=== PATIENT | female | born 2005 | race Two or more races ===

== ENCOUNTER 2025-01-14 09:52 | Emergency (ER) | payer BC, SELFPAY ==
[2025-01-14 10:05] VITALS: BP 114/57; PULSE 78; RESP 20; TEMP 36.3; O2SAT 100; BMI 26.4
--- NOTE | 2025-01-14 10:17 | PD.EDRME ---
Rapid Medical Screening Exam E Arrival date/time: 01/14/25 09:52 This is a 19-year-old female that comes in with complaints of nausea, vomiting, diarrhea that started 2 days ago. Patient also complains of lower abdominal pain. Patient stateS recently when she was wiping after going to the bathroom she noticed blood. Patient hyperventilating in triage. Patient states she is having a panic attack. Patient reports that she smokes medical marijuana since the seventh grade. Patient states she has not smoked since this started. Patient denies past medical history. I have greeted and performed a focused initial assessment of this patient. Initial appropriate labs ordered at this time. A comprehensive ED assessment and evaluation of the patient and analysis of all test and completion of medical decision making process will be conducted by additional ED provider. Chief Complaint: Abdominal Pain Time Seen by Provider: 01/14/25 09:56 Vital signs: Vital Signs Temperature 97.4 F 01/14/25 10:05 Pulse Rate 78 01/14/25 10:05 Respiratory Rate 20 01/14/25 10:05 Blood Pressure 114/57 L 01/14/25 10:05 Pulse Oximetry (%) 100 01/14/25 10:05 Oxygen Delivery Method Room Air 01/14/25 10:05
[2025-01-14] MEDS: ONDANSETRON ODT 4 MG TABRAP PO (10:24)
--- NOTE | 2025-01-14 11:00 | EDNOTE_ITS ---
<Statement entered by Chayito Villeda MD - 01/14/25 14:43> As co-signing physician, I was present and available for consult prn. I concur with the plan and care as documented by the midlevel provider. ED General RME/HPI General Chief complaint: Abdominal Pain Stated complaint: NAUSEA,DIZZY,UNABLE TO EAT/DRINK,ABD PAIN X 2 DAY Time Seen by Provider: 01/14/25 09:56 Arrival date/time: 01/14/25 09:52 CC: Nausea vomiting diarrhea abdominal pain bloody diarrhea HPI ongoing 2 days ago denies any fever no other family members with similar illness. Awake alert oriented no other complaints. No antibiotics in the last 3 months. RME / HPI RME / HPI narrative: 01/14/25 09:52 This is a 19-year-old female that comes in with complaints of nausea, vomiting, diarrhea that started 2 days ago. Patient also complains of lower abdominal pain. Patient stateS recently when she was wiping after going to the bathroom she noticed blood. Patient hyperventilating in triage. Patient states she is having a panic attack. Patient reports that she smokes medical marijuana since the seventh grade. Patient states she has not smoked since this started. Patient denies past medical history. I have greeted and performed a focused initial assessment of this patient. Initial appropriate labs ordered at this time. A comprehensive ED assessment and evaluation of the patient and analysis of all test and completion of medical decision making process will be conducted by additional ED provider. Related Data Previous Rx's ?Medication ?Instructions ?Recorded ondansetron 4 mg disintegrating 4 mg PO Q8H #10 tabs 0 01/14/25 tablet Allergies Allergy/AdvReac Type Severity Reaction Status Date / Time No Known Allergies Allergy Verified 01/14/25 09:55 Review of Systems Review of Systems Narrative Review of Systems: GEN: No fever, no chills, no weight loss EYES: No discharge, no visual changes, no pain HEENT: No ear pain, no congestion, no sore throat PULM: No shortness of breath, no cough, no congestion CV: No chest pain, no dyspnea on exertion, no palpitations GI: + nausea, + vomiting, +diarrhea, + pain, no constipation : No frequency, no urgency, no dysuria MUSC/SKEL: No joint pain, no back pain SKIN: No rash PSYCH: No hallucinations, no depression HEME/LYMPH: No easy bleeding or bruising tendencies NEURO: No weakness, no headache GEN: No fever, no chills, no weight loss Past Medical History Past Medical History CARDIAC: Negative Congestive Heart Failure RESPIRATORY: Negative Chronic Obstructive Pulmonary Disease (COPD) GASTROINTESTINAL: Positive Gastrointestinal Disorders GENITOURINARY: Negative Renal Disease ENDOCRINE: Negative Diabetes Mellitus Type 1 or Diabetes Mellitus Type 2 Social History SMOKING STATUS: Never smoker ED Exam Narrative Physical exam: [General: Obese not in cot no acute distress Head normocephalic HEENT: Within acceptable limits Neck is supple nontender Chest equal chest rise nontender to palpation Respiratory: Clear to auscultation no wheezes crackles or rubs CV: Rate rhythm is regular no murmurs rubs or clicks Abdomen is soft, diffusely tender, no masses positive bowel sounds all 4 quadrants Back: No CVA tenderness no spinous process tenderness from cervical spine thoracic and lumbar spine Skin: Intact no petechiae rash induration ulceration or crepitus Extremities: Moving all extremity against resistance cap refill less than 2 seconds neurosensory intact Neuro: Awake alert oriented x3 Glascow coma 15 no focal deficits] Course Quality Measures none Orders Category Date Time Status Saline [Insert IV] NOW Care 01/14/25 10:[address] abdomen pelvis wo con Stat Exams 01/14/25 12:05 Completed CBC Stat Lab 01/14/25 10:47 Completed Comprehensive Metabolic Panel Stat Lab 01/14/25 10:47 Completed Drug Screen,Urine Stat Lab 01/14/25 10:54 Completed HCG Qualitative,Urine Stat Lab 01/14/25 10:54 Completed Lipase Stat Lab 01/14/25 10:47 Completed PT [Prothrombin Time with INR] Stat Lab 01/14/25 10:47 Completed Urinalysis, C/S if Indicated Stat Lab 01/14/25 10:54 Completed c diff [Clostridium Difficile PCR] Stat Lab 01/14/25 12:08 Completed Ondansetron Inj [Zofran Inj] Med 01/14/25 10:58 Discontinued 4 mg IV X1 ONE Ondansetron Odt [Zofran Odt] Med 01/14/25 10:16 Discontinued 4 mg PO X1 ONE Prochlorperazine Inj [Compazine Inj] Med 01/14/25 12:52 Discontinued 10 mg IV X1 ONE Sodium Chloride 0.9% 1000 ml [Ns] 1,000 ml Med 01/14/25 10:58 Discontinued IV 999 mls/hr Vital Signs Vital signs: Vital Signs Temperature 97.4 F 01/14/25 10:05 Pulse Rate 78 01/14/25 10:05 Respiratory Rate 20 01/14/25 10:05 Blood Pressure 114/57 L 01/14/25 10:05 Pulse Oximetry (%) 100 01/14/25 10:05 Oxygen Delivery Method Room Air 01/14/25 10:05 Discharge Plan Plan Patient Disposition: HOME (Self Care) Patient condition on transfer: Stable Prescriptions/Referrals Prescriptions/Med Rec: New ondansetron 4 mg tablet,disintegrating 4 mg PO Q8H Qty: 10 0RF Referrals: Andrew Sifuentes PA-C [Primary Care Provider] - In 1 week Problem List Clinical Impression: Nausea vomiting and diarrhea Patient/Caregiver Discharge Instructions Education Materials: Self-Care for Vomiting and Diarrhea, ED Diarrhea, Unknown Cause, ED Vomiting and Diarrhea ... Additional Instructions: Take the medication as prescribed for nausea. Rest drink plenty of fluids. There is a worsening of symptoms in spite of the medications return the emergency room medially for further evaluation. Print Language: Malaysian Stand Alone Forms: [employer] Award Info., Patient Portal Info Letter, Work/School Release CRYSTAL/ELISEO Supervising Physician MANOJ Supervising Physician: Chavo Penny ENP MDM Patient Acuity Low Acuity (complete MDM as needed) Clinical Information Provided by: patient Medical Records reviewed [facility] Chronic Illness/Social Conditions which may negatively complicate care or outcome(s)-explain: None or not applicable EKG EKG not done Labs Lab(s) Interpretation(s): CBC shows no acute leukocytosis anemia thrombocytopenia coags within acceptable limits CMP shows no significant electrolyte imbalances renal impairment transaminitis or T. bili elevation Urine is negative with exception of 4+ ketones UDS is positive for marijuana Abdominal CT is negative C. difficile is negative Medication Administration(s) Medication Administration History Discontinued Medications Sodium Chloride (Ns) 1,000 mls @ 999 mls/hr IV .Q1H1M ONE Stop: 01/14/25 11:58 Last Infusion: 01/14/25 12:15 Dose: Infused Documented By: Admin: 01/14/25 11:11 Dose: 999 mls/hr Documented By: MAXWELL Ondansetron HCl (Ondansetron Odt 4 Mg Tabrap) 4 mg PO X1 ONE; Protocol Stop: 01/14/25 10:17 Last Admin: 01/14/25 10:24 Dose: 4 mg Documented By: MAXWELL Ondansetron HCl (Ondansetron Inj 2 Mg/Ml Inj 2 Ml) 4 mg IV X1 ONE; Protocol Stop: 01/14/25 10:59 Last Admin: 01/14/25 11:13 Dose: 4 mg Documented By: MAXWELL Prochlorperazine Edisylate (Prochlorperazine Inj 5 Mg/Ml Vial 2 Ml) 10 mg IV X1 ONE; Protocol Stop: 01/14/25 12:53 Last Admin: 01/14/25 13:06 Dose: 10 mg Documented By: MAXWELL Diagnosis Differential Diagnosis ED Complaint MDM: C. difficile ileus diverticulitis
[2025-01-14 11:02] LABS: Collection Type, Urine Voided
[2025-01-14 11:07] LABS: Basophils % (Auto) 0 % (0-2.5); Eosinophils % (Auto) 0 % (0-10); Hematocrit 41.7 % (36.0-46.0); Hemoglobin 14.7 g/dL (12.0-16.0); Immature Granulocytes % (Auto) 0 % (0-0); Immature Granulocytes Auto 0.02 Thou/mm3 (0.00-0.00); Lymphocytes # (Auto) 1.7 Thou/mm3 (1.0-4.8); Lymphocytes % (Auto) 18 % (10-50); Mean Corpuscular HGB Conc 35.3 g/dl (31.0-37.0); Mean Corpuscular Hemoglobin 29.1 pg (25.0-35.0); Mean Corpuscular Volume 82 fL (80-100); Monocytes # (Auto) 0.3 Thou/mm3 (0.0-0.8); Monocytes % (Auto) 3 % (0-12); Neutrophils # (Auto) 7.3 Thou/mm3 (1.8-7.7); Neutrophils % (Auto) 79 % (37-80); Nucleated Red Blood Cell % 0 /100 WBC (0); Platelet Count 284 Thou/mm3 (140-440); RDW Standard Deviation 36.5 fL (36.4-46.3); Red Blood Count 5.06 Miln/mm3 (4.00-5.20); White Blood Count 9.3 Thou/mm3 (4.5-11.0)
[2025-01-14 11:10] LABS: HCG Qualitative,Urine Negative
[2025-01-14] MEDS: SODIUM CHLORIDE 0.9% 1000 ML 1,000 ML 999 ML IV (11:11)
[2025-01-14] MEDS: ONDANSETRON INJ 2 MG/ML INJ 2 ML 4 MG IV (11:13)
[2025-01-14 11:16] LABS: Bacteria,Urine Rare; Bilirubin,Urine Negative (Negative); Blood,Urine 2+ (Negative); Clarity,Urine Clear (Clear/Hazy); Color,Urine Yellow (Lt Yel-Yel); Culture Indicated,Urine Not Indicated; Glucose, Urine Negative (Negative); Ketones,Urine 4+ (Negative); Leukocyte Esterase,Urine Negative (Negative); Nitrite,Urine Negative (Negative); PH,Urine 7.5 (5.0-7.0); Protein,Urine Trace (Neg - Trace); RBC,Urine 3 /hpf (0-3); Specific Gravity,Urine 1.031 (1.001-1.035); Squamous Epithelial Cell,Urine 4 /hpf (0-5); Urobilinogen,Urine Negative mg/dL (0.0-1.0); WBC,Urine < 1 /hpf (0-5)
[2025-01-14 11:20] LABS: INR 1.1 (0.9-1.3); Prothrombin Time 11.5 Seconds (9.0-12.2)
[2025-01-14 11:25] LABS: Alanine Aminotransferase 66 U/L (10-49); Albumin, Serum 4.9 gm/dL (3.5-5.0); Albumin/Globulin Ratio 1.9 (1.2-2.2); Alkaline Phosphatase 71 U/L (46-116); Anion Gap 13 (7-16); Aspartate Amino Transferase 34 U/L (0-34); BUN/Creatinine Ratio 12 Ratio (12-20); Bilirubin,Total 1.2 mg/dL (0.3-1.2); Blood Urea Nitrogen 11 mg/dL (9-23); Calcium 9.9 mg/dL (8.3-10.6); Calcium (Corrected) 9.9 mg/dL (8.5-10.1); Carbon Dioxide 21.1 mMol/L (20.0-31.0); Chloride 108 mMol/L (98-107); Creatinine (Component) 0.9 mg/dL (0.6-1.3); Estimated Creatinine Clearance 113.5 mL/min (>60); Globulin 2.6 gm/dL (2.3-3.5); Glucose 105 mg/dL (74-106); Lipase 22 U/L (12-53); Osmolality,Calculated 282 (275-295); Potassium 3.4 mMol/L (3.4-5.1); Sodium 142 mMol/L (136-145); Total Protein 7.5 gm/dL (5.7-8.2); eGFR > 60 See Note
[2025-01-14 11:34] LABS: Amphetamine/Methamp Scrn,U Negative (Negative); Barbiturate Screen,Urine Negative (Negative); Benzodiazepines Screen,Urine Negative (Negative); Benzoylecgonine Screen, Ur Negative (Negative); Fentanyl Screen,Urine Negative (Negative); Opiate Screen,Urine Negative (Negative); THC Screen,Urine Positive (Negative)
--- NOTE | 2025-01-14 12:05 | XR_ITS ---
Examination: CT abdomen and pelvis without contrast. Coronal 3-D reconstructions. Sagittal 2-D reconstructions. Date and time of exam:January 14, 2025 1218 hours INDICATIONS: Mid abdominal pain today CTDI: vol (mGy): 8.73 DLP: (mGycm): 435 Technique: Axial images of the abdomen have been obtained, 3 mm slice thickness Intravenous contrast material has not been administered. Low dose protocols were performed. One or more of the following dose reduction techniques were used; automated exposure control, adjustment of the mA and/or KV according to patient size, use of iterative reconstruction technique. Findings: No focal liver or splenic lesions No gallstones No pancreatic or adrenal mass No renal or ureteral calculi, no hydronephrosis Normal appendix No bowel obstruction No uterine mass 26 mm possible right adnexal cyst Urinary bladder is intact IMPRESSION: No renal or ureteral calculi, no hydronephrosis Normal appendix Recommend pelvic sonography to confirm 26 mm right adnexal cyst
[2025-01-14 12:12] VITALS: BP 120/69; PULSE 59; TEMP 36.8; O2SAT 98
[2025-01-14] MEDS: PROCHLORPERAZINE INJ 5 MG/ML VIAL 2 ML 10 MG IV (13:06)
[2025-01-14 13:56] LABS: Clostridium Difficile PCR Negative (Negative)
[2025-01-14 14:11] VITALS: BP 128/77; PULSE 88; RESP 16; TEMP 36.7; O2SAT 100
== END 2025-01-14 14:12 | disposition home or self-care (01) ==
PROVIDERS: Nurse Practitioner Family; Registered Nurse General Practice; Emergency Provider Emergency Medicine; PCP Physician Assistant
DX: R11.2 Nausea with vomiting, unspecified (principal); R19.7 Diarrhea, unspecified; R10.30 Lower abdominal pain, unspecified
CPT/HCPCS: 36415; 74176; 80053; 80307; 81001; 81025; 83690; 85025; 85610; 87493; 96361; 96374; 99284; J0780; J2405; J7030; Q0162

== ENCOUNTER 2025-01-19 11:15 | Emergency (ER) | payer BC, SELFPAY ==
[2025-01-19 11:31] VITALS: BP 131/95; PULSE 71; RESP 18; TEMP 36.4; O2SAT 100; BMI 25.4
--- NOTE | 2025-01-19 11:40 | XR_ITS ---
Examination: Pelvic ultrasound, transabdominal, complete Technique: Transabdominal ultrasound of the pelvis performed using grayscale imaging Date and time of exam: January 19, 2025 1247 hours INDICATIONS: Vaginal bleeding and pelvic pain beginning 3 days ago FINDINGS: Uterus 7.1 cm endometrial stripe 0.5 cm No uterine mass or intrauterine gestation Right ovary 3.1 cm arterial flow 29 mm cyst Left ovary 3.4 cm arterial flow IMPRESSION: Right ovarian simple cyst 2.3 x 1.9 x 2.9 cm
--- NOTE | 2025-01-19 11:40 | XR_ITS ---
Examination: Abdomen sonogram, Limited Date and time of exam: January 19, 2025 1227 hours INDICATIONS: Mid abdominal pain umbilical pain beginning one week ago Technique: Real-time armas scale transabdominal sonographic images of the upper abdomen obtained. Findings: Gallbladder sludge No gallstones Normal gallbladder wall Normal common bile duct 0.3 cm Pancreatic head 1.3 cm Liver 14.2 cm no focal liver lesions Normal hepatopedal portal venous flow Patent IVC IMPRESSION: Gallbladder sludge, negative for cholelithiasis, negative for cholecystitis
[2025-01-19 12:03] LABS: Basophils % (Auto) 0 % (0-2.5); Eosinophils % (Auto) 0 % (0-10); Hematocrit 39.7 % (36.0-46.0); Hemoglobin 14.3 g/dL (12.0-16.0); Immature Granulocytes % (Auto) 0 % (0-0); Immature Granulocytes Auto 0.02 Thou/mm3 (0.00-0.00); Lymphocytes # (Auto) 2.4 Thou/mm3 (1.0-4.8); Lymphocytes % (Auto) 27 % (10-50); Mean Corpuscular Hemoglobin 29.2 pg (25.0-35.0); Mean Corpuscular Volume 81 fL (80-100); Monocytes # (Auto) 0.5 Thou/mm3 (0.0-0.8); Monocytes % (Auto) 6 % (0-12); Neutrophils # (Auto) 5.9 Thou/mm3 (1.8-7.7); Neutrophils % (Auto) 67 % (37-80); Nucleated Red Blood Cell % 0 /100 WBC (0); Platelet Count 277 Thou/mm3 (140-440); RDW Standard Deviation 34.9 fL (36.4-46.3); White Blood Count 8.8 Thou/mm3 (4.5-11.0)
[2025-01-19 12:19] LABS: Collection Type, Urine Clean Catch; Squamous Epithelial Cell,Urine 0 /hpf (0-5)
--- NOTE | 2025-01-19 12:22 | PD.EDRME ---
Rapid Medical Screening Exam RME Arrival date/time: 01/19/25 11:15 19-year-old female with no known medical history presents to the emergency room with a chief complaint of right-sided pelvic pain, vaginal bleeding, right upper quadrant abdominal tenderness, and nausea x 3 days I have greeted and performed a focused initial assessment of this patient. A comprehensive ED assessment and evaluation of the patient, analysis of all test results, and completion of the medical decision making process will be conducted by additional ED providers. Chief Complaint: Vaginal Bleeding Time Seen by Provider: 01/19/25 11:19 Vital signs: Vital Signs Temperature 97.6 F 01/19/25 11:31 Pulse Rate 71 01/19/25 11:31 Respiratory Rate 18 01/19/25 11:31 Blood Pressure 131/95 H 01/19/25 11:31 Pulse Oximetry (%) 100 01/19/25 11:31 Oxygen Delivery Method Room Air 01/19/25 11:31 Vital signs reviewed by provider: Yes
[2025-01-19 12:25] LABS: Bilirubin,Urine Negative (Negative); Blood,Urine 3+ (Negative); Clarity,Urine Clear (Clear/Hazy); Color,Urine Lt-Yellow (Lt Yel-Yel); Glucose, Urine Negative (Negative); HCG Qualitative,Urine Negative; Ketones,Urine 3+ (Negative); Leukocyte Esterase,Urine Negative (Negative); Nitrite,Urine Negative (Negative); Protein,Urine Trace (Neg - Trace); RBC,Urine 43 /hpf (0-3); Specific Gravity,Urine 1.024 (1.001-1.035); WBC,Urine 1 /hpf (0-5)
[2025-01-19 12:26] LABS: Alanine Aminotransferase 22 U/L (10-49); Albumin, Serum 4.9 gm/dL (3.5-5.0); Albumin/Globulin Ratio 1.8 (1.2-2.2); Alkaline Phosphatase 68 U/L (46-116); Anion Gap 10 (7-16); Aspartate Amino Transferase 16 U/L (0-34); BUN/Creatinine Ratio 9 Ratio (12-20); Blood Urea Nitrogen 7 mg/dL (9-23); Calcium 9.6 mg/dL (8.3-10.6); Calcium (Corrected) 9.6 mg/dL (8.5-10.1); Carbon Dioxide 26.2 mMol/L (20.0-31.0); Chloride 106 mMol/L (98-107); Creatinine (Component) 0.8 mg/dL (0.6-1.3); Estimated Creatinine Clearance 117.2 mL/min (>60); Globulin 2.8 gm/dL (2.3-3.5); Glucose 90 mg/dL (74-106); Lipase 26 U/L (12-53); Osmolality,Calculated 281 (275-295); Sodium 142 mMol/L (136-145); Total Protein 7.7 gm/dL (5.7-8.2); eGFR > 60 See Note
[2025-01-19 13:54] VITALS: BP 129/72; PULSE 60; RESP 18; TEMP 36.8; O2SAT 97
--- NOTE | 2025-01-19 15:18 | EDNOTE_ITS ---
ED Abdominal Pain RME/HPI General Chief Complaint: Vaginal Bleeding Stated complaint: VAGINAL BLEEDING X 3 DAYS WITH ABD PAIN; OB SENT Time seen by provider: 01/19/25 11:19 Arrival date/time: 01/19/25 11:15 RME / HPI RME / HPI narrative: 19-year-old female with no known medical history presents to the emergency room with a chief complaint of right-sided pelvic pain, vaginal bleeding, right upper quadrant abdominal tenderness, and nausea x 3 days. Patient denies any fever. Denies any vomiting denies any other complaints. She is on her third day of menstruation. Related Data Previous Rx's ?Medication ?Instructions ?Recorded ondansetron 4 mg disintegrating 4 mg PO Q8H #10 tabs 0 01/14/25 tablet dicyclomine 20 mg tablet 20 mg PO TID PRN abdominal p ain 01/19/25 #30 tabs ibuprofen 800 mg tablet 800 mg PO TID PRN pain #30 t abs 01/19/25 Allergies Allergy/AdvReac Type Severity Reaction Status Date / Time No Known Allergies Allergy Verified 01/19/25 11:18 Review of Systems Review of Systems Narrative Review of Systems: Review of system reviewed and within normal limits except mentioned in HPI ED Exam Narrative Physical exam: VITAL SIGNS: Reviewed. GENERAL APPEARANCE: Alert and interactive, follows commands, no acute distress, HEAD AND FACE: Non-traumatic. ENT: PERRL, pink conjunctivitis, eyelid no trauma, Mucous membrane moist. NECK: Supple, nontender, no nuchal rigidity. CHEST: No tenderness, no crepitus, no paradoxical movement, no retractions. LUNGS: Clear, well ventilated, symmetric, no rales, no wheezing, no ronchi, no stridor, good breath sounds bilaterally. HEART: Regular rate, regular rhythm, no murmur, no gallops. ABDOMEN: Soft, positive bowel sounds, nondistended, no guarding, epigastric ten derness, no rebound, no masses, RECTAL: Deferred. GENITAL: Deferred. NEUROLOGICAL: Gross motor function intact sensory function intact, Appropriate for age. MUSCULOSKELETAL: low back nontender, full range of motion. EXTREMITIES: Nontender, full range of motion. SKIN: Color pink, dry, no rash, no lacerations, no abrasions, no contusions. LYMPHATICS: Deferred. Course Quality Measures none Orders Category Date Time Status US gall bladder Stat Exams 01/19/25 11:40 Completed US pelvic complete Stat Exams 01/19/25 11:40 Completed CBC Stat Lab 01/19/25 11:57 Completed CMP [Comprehensive Metabolic Panel] Stat Lab 01/19/25 11:57 Completed HCG Qualitative,Urine Stat Lab 01/19/25 12:12 Completed Lipase Stat Lab 01/19/25 11:57 Completed UA [Urinalysis] Stat Lab 01/19/25 12:12 Completed Urine Culture Stat Lab 01/19/25 11:40 Received Vital Signs Vital signs: Vital Signs Temperature 97.6 F 01/19/25 11:31 Pulse Rate 71 01/19/25 11:31 Respiratory Rate 18 01/19/25 11:31 Blood Pressure 131/95 H 01/19/25 11:31 Pulse Oximetry (%) 100 01/19/25 11:31 Oxygen Delivery Method Room Air 01/19/25 11:31 Abdominal Pain MDM [facility] Narrative [facility] Narrative:: 19-year-old female with no known medical history presents to the emergency room with a chief complaint of right-sided pelvic pain, vaginal bleeding, right upper quadrant abdominal tenderness, and nausea x 3 days. Patient denies any fever. Denies any vomiting denies any other complaints. She is on her third day of menstruation. Patient workup today all came back abnormal except for ultrasound that showed gallbladder sludge otherwise unremarkable. Ultrasound of pelvic showed simple ovarian cysts on the right Results discussed with the patient. Patient appears nontoxic and hemodynamically stable. Patient discharged home and instructed to follow-up with primary care provider in 24 to 48 hours. Instructed to return to the emergency department immediately if worsening of symptoms Patient data External records reviewed:: None Clinical information provided by:: patient Social determinants that could affect healthcare access:: none Patient has the following chronic illnesses:: None How is presenting disease/condition affected by chronic disease/condition?: no chronic disease Evaluation data The following diagnostics were reviewed and interpreted by me:: lab results and radiology exam(s) Lab and/or radiology exams considered but not ordered:: None Interpretation Summary: See results in MDM Medications / Prescriptions Medications or Prescriptions considered but not ordered:: None Medication administrations:: None Consultations Consultation(s) initiated? (list below): No Diagnosis Differential diagnosis abdominal pain: abdominal pain and other (Ovarian cyst, gallbladder sludge) Most likely diagnosis given after review of the tests above:: Ovarian cyst, gallbladder sludge Admission Indicated Admission indicated?: not indicated Admission Request Was there a request for admission?: No Disposition Plan Disposition Plan: Discharge Discharge Attestation Discharge Attestation: The patient was given an opportunity to ask questions and understood the discharge instructions. Discharge instructions specifically effects, indications for sooner follow up or return to the emergency department, and the expected course of current diagnosis. Patient condition: Stable Discharge Plan Plan Patient Disposition: HOME (Self Care) Discharge Disposition comment: Stable Prescriptions/Referrals Prescriptions/Med Rec: New dicyclomine 20 mg tablet 20 mg PO TID PRN (Reason: abdominal pain) Qty: 30 0RF ibuprofen 800 mg tablet 800 mg PO TID PRN (Reason: pain) Qty: 30 0RF No Action ondansetron 4 mg tablet,disintegrating 4 mg PO Q8H Qty: 10 0RF Referrals: No Primary/Family,Physician [Primary Care Provider] - In 1 week Problem List Clinical Impression: Gallbladder sludge, Ovarian cyst Patient/Caregiver Discharge Instructions Discharge Activity: activity as tolerated Education Materials: Understanding Ovarian Cysts, ED Ovarian Cyst Additional Instructions: Thank you for the opportunity for serving you today. You are stable for discharged . You are advised to: Follow-up with your PCP in 1 to 2 days Please avoid eating fatty, greasy, fried foods Return to ED for worsening of symptoms Increase oral fluids Take medication as prescribed Print Language: Kyrgyz Stand Alone Forms: [employer] Award Info., Patient Portal Info Letter PA/ELISEO Supervising Physician CRYSTAL/ELISEO Supervising Physician: MD Jet
== END 2025-01-19 15:32 | disposition home or self-care (01) ==
PROVIDERS: Nurse Practitioner Family; Emergency Provider Emergency Medicine
DX: K82.8 Other specified diseases of gallbladder (principal); N83.291 Other ovarian cyst, right side
CPT/HCPCS: 36415; 76705; 76856; 80053; 81001; 81025; 83690; 85025; 87086; 99284

== ENCOUNTER 2025-01-20 15:48 | Inpatient (IN) | payer BC, SELFPAY ==
[2025-01-20 16:23] VITALS: BP 141/82; PULSE 79; RESP 20; TEMP 37.1; O2SAT 100
--- NOTE | 2025-01-20 16:30 | PD.EDRME ---
Rapid Medical Screening Exam E Arrival date/time: 01/20/25 15:48 This is a 19-year-old female with complaints of nausea, vomiting, diarrhea, patient states symptoms have been going on for the past 9 days. Patient states she is left 15 pounds since then. Patient was diagnosed with by gallbladder sludge. Patient was also having vaginal bleeding and recently had an ultrasound that showed that she had some ovarian cyst. Patient states she had just got her menstrual cycle and then started bleeding a couple days ago. Patient states she is not able to keep any food down. I have greeted and performed a focused initial assessment of this patient. Initial appropriate labs ordered at this time. A comprehensive ED assessment and evaluation of the patient and analysis of all test and completion of medical decision making process will be conducted by additional ED provider. Chief Complaint: Abdominal Pain Time Seen by Provider: 01/20/25 15:52 Vital signs: Vital Signs Temperature 98.8 F 01/20/25 16:23 Pulse Rate 79 01/20/25 16:23 Respiratory Rate 20 01/20/25 16:23 Blood Pressure 141/82 H 01/20/25 16:23 Pulse Oximetry (%) 100 01/20/25 16:23 Oxygen Delivery Method Room Air 01/20/25 16:23
[2025-01-20] MEDS: ONDANSETRON ODT 4 MG TABRAP PO (16:39)
[2025-01-20 17:12] LABS: Basophils % (Auto) 0 % (0-2.5); Eosinophils % (Auto) 0 % (0-10); Hematocrit 38.1 % (36.0-46.0); Immature Granulocytes % (Auto) 0 % (0-0); Immature Granulocytes Auto 0.03 Thou/mm3 (0.00-0.00); Lymphocytes % (Auto) 33 % (10-50); Mean Corpuscular HGB Conc 36.7 g/dl (31.0-37.0); Mean Corpuscular Hemoglobin 29.4 pg (25.0-35.0); Mean Corpuscular Volume 80 fL (80-100); Monocytes # (Auto) 0.5 Thou/mm3 (0.0-0.8); Monocytes % (Auto) 6 % (0-12); Neutrophils # (Auto) 5.4 Thou/mm3 (1.8-7.7); Neutrophils % (Auto) 60 % (37-80); Nucleated Red Blood Cell % 0 /100 WBC (0); Platelet Count 281 Thou/mm3 (140-440); Red Blood Count 4.76 Miln/mm3 (4.00-5.20)
[2025-01-20 17:27] LABS: Alanine Aminotransferase 16 U/L (10-49); Albumin, Serum 4.8 gm/dL (3.5-5.0); Albumin/Globulin Ratio 1.7 (1.2-2.2); Alkaline Phosphatase 66 U/L (46-116); Anion Gap 13 (7-16); Aspartate Amino Transferase 16 U/L (0-34); BUN/Creatinine Ratio 9 Ratio (12-20); Bilirubin,Total 1.3 mg/dL (0.3-1.2); Blood Urea Nitrogen 7 mg/dL (9-23); Calcium 9.4 mg/dL (8.3-10.6); Calcium (Corrected) 9.4 mg/dL (8.5-10.1); Carbon Dioxide 22.5 mMol/L (20.0-31.0); Chloride 106 mMol/L (98-107); Creatinine (Component) 0.8 mg/dL (0.6-1.3); Globulin 2.8 gm/dL (2.3-3.5); Glucose 82 mg/dL (74-106); Lipase 24 U/L (12-53); Osmolality,Calculated 278 (275-295); Potassium 3.6 mMol/L (3.4-5.1); Sodium 141 mMol/L (136-145); Total Protein 7.6 gm/dL (5.7-8.2); eGFR > 60 See Note
--- NOTE | 2025-01-20 19:51 | EDNOTE_ITS ---
ED Abdominal Pain RME/HPI General Chief Complaint: Abdominal Pain Stated complaint: ABD PAIN, N/V/D Time seen by provider: 01/20/25 15:52 Arrival date/time: 01/20/25 15:48 RME / HPI RME / HPI narrative: 01/20/25 15:48 This is a 19-year-old female with complaints of nausea, vomiting, diarrhea, patient states symptoms have been going on for the past 9 days. Patient states she is left 15 pounds since then. Patient was diagnosed with by gallbladder sludge. Patient was also having vaginal bleeding and recently had an ultrasound that showed that she had some ovarian cyst. Patient states she had just got her menstrual cycle and then started bleeding a couple days ago. Patient states she is not able to keep any food down. I have greeted and performed a focused initial assessment of this patient. Initial appropriate labs ordered at this time. A comprehensive ED assessment and evaluation of the patient and analysis of all test and completion of medical decision making process will be conducted by additional ED provider. DR. VILLEDA MAIN ED EVALUATION: 19 y/o female with Hx of gastritis presents to ED c/o intermittent epigastric abdominal pain, BL flank pain, diarrhea, vomiting, loss of appetite, and weight loss x 9 days. She describes the abdominal pain as someone tying her guts into knots , and worsening each time it returns. Patient reports losing 15 lb. since last Wednesday. Patient gags as soon as food enters her mouth, but has been drinking water. Patient was told yesterday to avoid sugar. Patient has seen her PCP and given Omeperazole with no relief. Patient was also seen here yesterday and told she had gallbladder sludge following an US and given medication that also does not help. She reports Zofran has helped with nausea, but still is not able to eat. Admits at-home test was negative and relies on Nexplanon as control. No other concerns or complaints expressed at this time. Related Data Home Medications ?Medication ?Instructions ?Recorded ?Confirmed omeprazole 20 mg capsule,delayed 20 mg PO BID 01/20/25 01/20/25 release sucralfate 1 gram tablet 1 g PO BID 01/20/25 01/20/25 Previous Rx's ?Medication ?Instructions ?Recorded ondansetron 4 mg disintegrating 4 mg PO Q8H #10 tabs 0 01/14/25 tablet Allergies Allergy/AdvReac Type Severity Reaction Status Date / Time No Known Allergies Allergy Verified 01/19/25 11:18 Review of Systems Review of Systems Systems Reviewed: All systems reviewed, normal except as documented Narrative Review of Systems: Gen: No fever, no chills, Positive weight loss EYES: No discharge, no visual changes, no pain HEENT: No ear pain, no congestion, no sore throat PULM: No shortness of breath, no cough, no congestion CV: No chest pain, no dyspnea on exertion, no palpitations GI: Positive nausea, no vomiting, positive diarrhea, positive pain, positive loss of appetite : No frequency, no urgency, no dysuria Musc/skel: No joint pain, Positive BL flank pain. Skin: No rash. Psyc: No hallucinations, no depression Heme/Lymph: No easy bleeding or bruising tendencies Neuro: No weakness, no headache Past Medical History Past Medical History GASTROINTESTINAL: Positive Gastrointestinal Disorders ED Exam Narrative Physical exam: GENERAL APPEARANCE: alert and oriented x 4, well-developed, well-nourished, no acute distress VITALS: All vitals were reviewed and the pulse ox is 96% on room air, which is n ormal according to my interpretation. HEENT: Normocephalic, atraumatic; pupils equal, round, reactive to light; EOMI; mucous membranes pink, moist; oropharynx clear NECK: Supple LUNGS: CTABL; no wheezes, no rales, no rhonchi HEART: Regular rate, regular rhythm; normal S1, S2; no murmurs ABDOMEN: non distended; normal BS; soft, positive epigastric tenderness, no guarding, no rebound; no masses, no organomegaly, no hernia BACK: no CVA tenderness EXTREMITIES: atraumatic; no edema NEUROLOGIC: awake; alert and oriented x4; cranial nerves II-XII grossly intact; no focal sensory or motor deficits PSYCHIATRIC: appropriate mood and affect SKIN: warm, dry, normal color; no rashes Course Quality Measures none Orders Category Date Time Status NPO after Midnight ONCE Care 01/20/25 20:09 Active Diet NPO after Midnight Diet 01/21/25 00:01 Completed CBC Stat Lab 01/20/25 16:53 Completed Comprehensive Metabolic Panel Stat Lab 01/20/25 16:53 Completed Lipase Stat Lab 01/20/25 16:53 Completed Morphine Inj Med 01/20/25 20:09 Discontinued 5 mg IVP X1 ONE Ondansetron Inj [Zofran Inj] Med 01/20/25 20:09 Discontinued 4 mg IV X1 ONE Ondansetron Odt [Zofran Odt] Med 01/20/25 16:29 Discontinued 4 mg PO X1 ONE Sodium Chloride 0.9% 1000 ml [Ns] 1,000 ml Med 01/20/25 20:08 Discontinued IV 999 mls/hr Sodium Chloride 0.9% 1000 ml [Ns] 1,000 ml Med 01/20/25 20:08 Discontinued IV 999 mls/hr Vital Signs Vital signs: Vital Signs Temperature 98.8 F 01/20/25 16:23 Pulse Rate 79 01/20/25 16:23 Respiratory Rate 20 01/20/25 16:23 Blood Pressure 141/82 H 01/20/25 16:23 Pulse Oximetry (%) 100 01/20/25 16:23 Oxygen Delivery Method Room Air 01/20/25 16:23 Abdominal Pain MDM MDM Narrative MDM Narrative:: Scribe Attestation: Amy Palomino, am scribing for and in the presence of Dr. Villeda. Provider Notation: Although this document has been carefully reviewed, there may still be some phonetic and other typographical errors. These errors are purely grammatical due to imperfections in the software program and should not be construed in any way to compromise the substance of the patient's medical care during this visit. Patient data External records reviewed:: [facility] previous records Clinical information provided by:: patient Social determinants that could affect healthcare access:: none Patient has the following chronic illnesses:: Gastritis How is presenting disease/condition affected by chronic disease/condition?: exacerbated by Evaluation data The following diagnostics were reviewed and interpreted by me:: lab results Lab and/or radiology exams considered but not ordered:: None. Interpretation Summary: Labs: Refer to MDM above. Medications / Prescriptions Medications or Prescriptions considered but not ordered:: None. Medication administrations:: Medication Administration History Acetaminophen (Acetaminophen 325 Mg Tablet) 650 mg PO Q6H PRN PRN Reason: Mild Pain (1-3) & Fever >101.5 Stop: 02/19/25 21:19 Hydrocodone Bitart/Acetaminophen (Hydrocodone/Apap 5/325 Tablet) 1 tab PO Q6HR PRN PRN Reason: PAIN SCALE 4-6 (Moderate Stop: 01/25/25 23:35 Al Hydrox/Mg Hydrox/Simethicone (Mg Hyd/Al Hyd/Tricia (Maalox Reg) Susp 30 Ml Udc) 30 ml PO Q6H PRN PRN Reason: Indigestion Stop: 02/19/25 21:19 Lactated Ringer's (Lactated Ringers) 1,000 mls @ 75 mls/hr IV .[id number] JC Stop: 02/19/25 21:29 Last Admin: 01/20/25 22:10 Dose: 75 mls/hr Documented By: VIDA Morphine Sulfate (Morphine Sulf Inj 10 Mg/Ml Vial) 2 mg IVP Q4HR PRN PRN Reason: PAIN SCALE 7-10 (Severe Stop: 01/25/25 23:34 Last Admin: 01/20/25 23:51 Dose: 2 mg Documented By: RB Ondansetron HCl (Ondansetron Inj 2 Mg/Ml Inj 2 Ml) 4 mg IV Q6H PRN; Protocol PRN Reason: NAUSEA OR VOMITING Stop: 02/19/25 21:19 Pantoprazole Sodium (Pantoprazole Inj 40 Mg Vial) 40 mg IVP BID [facility] Stop: 02/19/25 21:29 Last Admin: 01/20/25 22:10 Dose: 40 mg Documented By: VIDA Discontinued Medications Sodium Chloride (Ns) 1,000 mls @ 999 mls/hr IV .Q1H1M ONE Stop: 01/20/25 21:08 Last Infusion: 01/20/25 22:01 Dose: Infused Documented By: Admin: 01/20/25 20:18 Dose: 999 mls/hr Documented By: JEROME Sodium Chloride (Ns) 1,000 mls @ 999 mls/hr IV .Q1H1M ONE Stop: 01/20/25 21:08 Last Infusion: 01/20/25 22:02 Dose: Infused Documented By: Admin: 01/20/25 20:19 Dose: 999 mls/hr Documented By: JEROME Morphine Sulfate (Morphine Sulf Inj 10 Mg/Ml Vial) 5 mg IVP X1 ONE Stop: 01/20/25 20:10 Last Admin: 01/20/25 20:19 Dose: 5 mg Documented By: JEROME Ondansetron HCl (Ondansetron Odt 4 Mg Tabrap) 4 mg PO X1 ONE; Protocol Stop: 01/20/25 16:30 Last Admin: 01/20/25 16:39 Dose: 4 mg Documented By: JOSEFA Ondansetron HCl (Ondansetron Inj 2 Mg/Ml Inj 2 Ml) 4 mg IV X1 ONE Stop: 01/20/25 20:10 Last Admin: 01/20/25 20:19 Dose: 4 mg Documented By: JEROME See above if any. Consultations Consultation(s) initiated? (list below): Yes Consultation #1 (Physician, Specialty, Details): Dr. Oswald made aware of the patient?s HPI, PMHx, lab and/or radiology results. Treatment plan was discussed (EGD and HIDA scan). Will admit for further evalua tion and management. Accepts patient for admission. Time: 19:59 Consultation #2 (Physician, Specialty, Details): Dr. Samaniego made aware of the patient?s HPI, PMHx, lab and/or radiology results. Treatment plan was discussed. Will admit for further evaluation and management. Accepts patient for admission. Time: 20:38 Diagnosis Differential diagnosis abdominal pain: abdominal pain, calculus of kidney, diverticulitis, gastroenteritis, pancreatitis and other (gastritis vs peptic ulcer vs cannabinoid hyperemesis) Most likely diagnosis given after review of the tests above:: Nausea, vomiting, dehydration, abdominal pain. Admission Indicated Admission indicated?: indicated Explain why admission is indicated or not indicated:: For EGD, HIDA scan, and further evaluation and treatment. Admission Request Was there a request for admission?: Yes Admission Attestation Admission request attestation: Discussed case with [] from Hospitalist service regarding admission. Discussed patients ED course, exam findings, labs, and radiology results. The Hospitalist [agrees,declines] to accept the patient for admission. Disposition Plan Disposition Plan: Admit Discharge Plan Plan Patient Disposition: Admit Acute Care w/in Hospital Problem List Clinical Impression: Nausea, Abdominal pain, Vomiting, Dehydration
[2025-01-20 20:09] VITALS: BP 128/86; PULSE 69; RESP 24; TEMP 37.3; O2SAT 100; BMI 25.1
[2025-01-20] MEDS: SODIUM CHLORIDE 0.9% 1000 ML 1,000 ML 999 ML IV ×2 (20:18→20:19)
[2025-01-20] MEDS: ONDANSETRON INJ 2 MG/ML INJ 2 ML 4 MG IV (20:19)
[2025-01-20] MEDS: MORPHINE SULF INJ 10 MG/ML VIAL 5 MG IVP (20:19)
--- NOTE | 2025-01-20 21:30 | PD.RESHP ---
Documentation for date of: 01/20/25 HPI History of Present Illness Chief complaint: Nausea vomiting, bright red blood in stool. History of present illness: Ms. Gloria is a 19-year-old female with past medical history of gastritis who presented to [facility] emergency department on 01/20/2025 with a chief complaint of nausea and vomiting. Patient complains of uncontrolled nausea and vomiting for the last 7-9 days, reports that she has had multiple episodes of vomitus, nonbloody, reports about 15 pound weight loss in the last 10 days. Reports that she was seen multiple times in the emergency department at [place] and also [facility]. Patient also complains of abdominal pain, describes it as someone tying her guts into knots , and worsening each time it returns, reports the pain to be progressive. Patient reports that she is unable to keep food down, reports that she has not eaten anything in the last 2 days as well. Patient also saw her PCP was given omeprazole and sucralfate. Patient has also been using Zofran as needed for nausea/vomiting, reports no improvement. Patient also complains of blood in stool she saw about 5 days ago 3 times, does report some diarrhea in the past, no current diarrhea reported. Patient also complains of ovarian cyst, reports is following [employer] for that. Patient denies any history of hemorrhoids. Patient otherwise denies any chest pain, shortness of breath and headache. ED Course: ED Vitals: On presentation blood pressure 141/82, heart rate 79, respiratory rate 20, temp 98.8, O2 sat 100 on room ED Labs: ED labs significant for BUN 7, creatinine 0.8, total bilirubin 1.3. Otherwise CBC CMP unremarkable. ED Imaging:Gallbladder ultrasound done in ED on 01/19/2025 shows gallbladder sludge, negative for cholelithiasis pelvis ultrasound shows right ovarian simple cyst 2.3 x 1.[address] abdomen pelvis from 01/14/2025 shows right adnexal cyst. ED Treatment:Patient was given Zofran 4 mg p.o. x 1, 2 L NS bolus, morphine 5 mg IV push x 1 and Zofran 4 mg IV x 1 in the emergency department Review of Systems Review of Systems Narrative Review of Systems: ROS: -CONSTITUTIONAL: Denies weight loss, fever and chills. -HEENT: Denies changes in vision and hearing. -RESPIRATORY: Denies SOB and cough. -CV: Denies palpitations and Chest Pain. -GI: Positive for abdominal pain, nausea, vomiting, denies constipation and diarrhea. -: Denies dysuria and urinary frequency. -MSK: Denies myalgia and joint pain. -SKIN: Denies rash and pruritus. -NEUROLOGICAL: Denies headache and syncope. -PSYCHIATRIC: Denies recent changes in mood. Denies anxiety and depression. Past Medical History Past Medical History Comments PMH COMMENT: PMH: Positive for gastritis PSHx: Denies Allergies: No known drug and food allergies Social history: Independent ADLs, no kids -Smoking: Denies -Alcohol Use: Denies -Illicit Drug Use: Positive for marijuana use, reports last use was about 10 days ago. Family History: Positive for GI issues in family, family history of breast cancer. Exam Vital Signs Temp Pulse Resp BP Pulse Ox O2 Del Method 99.1 F 69 24 H 128/86 H 100 Room Air 01/20/25 20:09 01/20/25 20:09 01/20/25 20:09 01/20/25 20:01/20/25 20:01/20/25 20:09 Narrative Exam Physical Exam General: Awake and in no acute distress. Conversational and non-toxic appearing. HEENT: Normocephalic, atraumatic, mucous membranes moist. Heart: Regular rate and rhythm, no murmurs. Lungs: Clear to auscultation with no wheezing or crackles. Abdomen: Soft, nondistended, positive epigastric tenderness, positive bowel sounds. ?No guarding or rebound tenderness. Neurologic: Alert and oriented x3, no gross neurological deficit, and patient able to move all 4 extremities. Extremities: No edema. Skin: No rash or ecchymoses. Results: Labs 01/20/25 16:53 01/20/25 16:53 Labs: Short CBC 01/20/25 Range/Units 16:53 WBC 9.0 (4.5-11.0) Thou/mm3 Hgb 14.0 (12.0-16.0) g/dL Hct 38.1 (36.0-46.0) % Plt Count 281 (140-440) Thou/mm3 BMP 01/20/25 16:53 Sodium 141 Potassium 3.6 Chloride 106 Carbon Dioxide 22.5 BUN 7 L Creatinine 0.8 Glucose 82 Calcium 9.4 Liver Function 01/20/25 Range/Units 16:53 Total Bilirubin 1.3 H (0.3-1.2) mg/dL AST 16 (0-34) U/L ALT 16 (10-49) U/L Alkaline Phosphatase 66 (46-116) U/L Albumin 4.8 (3.5-5.0) gm/dL Quality Measures Quality Measures none Medications Home Medications and Allergies Home Medications ?Medication ?Instructions ?Recorded ?Confirmed ?Type omeprazole 20 mg capsule,delayed 20 mg PO BID 01/20/25 01/20/25 History release sucralfate 1 gram tablet 1 g PO BID 01/20/25 01/20/25 History Allergies Allergy/AdvReac Type Severity Reaction Status Date / Time No Known Allergies Allergy Verified 01/19/25 11:18 Visit Medications Acetaminophen (Acetaminophen 325 Mg Tablet) 650 mg PO Q6H PRN PRN Reason: Mild Pain (1-3) & Fever >101.5 Stop: 02/19/25 21:19 Al Hydrox/Mg Hydrox/Simethicone (Mg Hyd/Al Hyd/Tricia (Maalox Reg) Susp 30 Ml Udc) 30 ml PO Q6H PRN PRN Reason: Indigestion Stop: 02/19/25 21:19 Lactated Ringer's (Lactated Ringers) 1,000 mls @ 75 mls/hr IV .[id number] [facility] Stop: 02/19/25 21:29 Ondansetron HCl (Ondansetron Inj 2 Mg/Ml Inj 2 Ml) 4 mg IV Q6H PRN; Protocol PRN Reason: NAUSEA OR VOMITING Stop: 02/19/25 21:19 Pantoprazole Sodium (Pantoprazole Inj 40 Mg Vial) 40 mg IVP BID [facility] Stop: 02/19/25 21:29 Discontinued Medications Sodium Chloride (Ns) 1,000 mls @ 999 mls/hr IV .Q1H1M ONE Stop: 01/20/25 21:08 Last Admin: 01/20/25 20:18 Dose: 999 mls/hr Sodium Chloride (Ns) 1,000 mls @ 999 mls/hr IV .Q1H1M ONE Stop: 01/20/25 21:08 Last Admin: 01/20/25 20:19 Dose: 999 mls/hr Morphine Sulfate (Morphine Sulf Inj 10 Mg/Ml Vial) 5 mg IVP X1 ONE Stop: 01/20/25 20:10 Last Admin: 01/20/25 20:19 Dose: 5 mg Ondansetron HCl (Ondansetron Odt 4 Mg Tabrap) 4 mg PO X1 ONE; Protocol Stop: 01/20/25 16:30 Last Admin: 01/20/25 16:39 Dose: 4 mg Ondansetron HCl (Ondansetron Inj 2 Mg/Ml Inj 2 Ml) 4 mg IV X1 ONE Stop: 01/20/25 20:10 Last Admin: 01/20/25 20:19 Dose: 4 mg Assessment & Plan Plan Assessment and plan: Summary: Ms. Gloria is a 19-year-old female with past medical history of gastritis who presented to [facility] emergency department on 01/20/2025 with a chief complaint of nausea and vomiting. Patient was admitted for further workup for intractable abdominal pain nausea and vomiting and GI bleed. # Intractable abdominal pain # Intractable nausea and vomiting # GI bleed upper versus lower DDx: Peptic ulcer disease, gastritis, cyclical vomiting syndrome/cannabinoid hyperemesis syndrome, inflammatory bowel disease, biliary dyskinesia Patient complains of multiple episodes of nausea vomiting and abdominal pain for the last 10 days, multiple visits to ER, non-resolved with sucralfate and omeprazole. Patient does report bright red blood in stool 3 times about 5 days ago. On presentation hemoglobin within normal limits, electrolytes within normal limits, no JESSEE noted. CT abdomen pelvis from 01/14/2025 shows right adnexal cyst, otherwise benign. Urine tox screen positive for marijuana, reports last use about 10 days ago. Patient was given Zofran 4 mg p.o. x 1, 2 L NS bolus, morphine 5 mg IV push x 1 and Zofran 4 mg IV x 1 in the emergency department Plan: - GI consulted, scheduled for EGD - N.p.o. after midnight - Protonix 40 IV twice daily - Pain management - Monitor vitals closely - Maintenance fluids LR - Follow ESR CRP in a.m., consider colonoscopy - GI consulted, appreciate recommendations - Follow CBC CMP in a.m. # Hyperbilirubinemia # Gallbladder sludge Patient's bilirubin 1.3 on presentation, gallbladder ultrasound in ED on 01/19/2025 shows gallbladder sludge, negative for cholelithiasis Plan: - Follow direct bilirubin in a.m. - Consider HIDA scan - Follow CMP in a.m. #Right ovarian simple cyst Patient does report menorrhagia, pelvis ultrasound shows right ovarian simple cyst 2.3 x 1.[address] abdomen pelvis from 01/14/2025 shows right adnexal cyst. Patient is aware, follows [employer] outpatient #THC dependence Patient advised to refrain from cannabis use. DVT prophylaxis: SCDs GI prophylaxis: IV Protonix twice daily Diet: Clear liquid, n.p.o. after midnight Lines: Peripheral IV Code status: Full code Case discussed with Attending Dr. Samaniego. Rodo Kennedy PGY1 Disclaimer: This note was dictated by speech recognition. Minor errors in cream buyer may be present due to voice recognition software. Attending Provider Attestation/Addendum I have examined the patient, reviewed labs and imaging findings, discussed the case with the resident(s), and reviewed entered orders. I agree with the plan of care as outlined in this note, with these additional summaries/recommendations: 19-year-old female presents to the ED with chief complaint of persistent and worsening epigastric abdominal pain as well as intractable nausea and vomiting. Patient reports this issue initially began last week and has been ongoing and worsening. She reports 4 visits to the ER (3 to [facility] ER in 1 to [facility]) in which she was told she had possible gastritis, possible cholecystitis but has found no improvement in symptoms despite sucralfate and PPI. Patient also notes bright red blood per rectum and episodes of diarrhea that have been ongoing. Patient found to have JESSEE and will be admitted for further workup of intractable nausea and vomiting and bright red blood per rectum. Conrado Samaniego MD
[2025-01-20] MEDS: RINGERS LACTATED 1000 ML 1,000 ML 75 ML IV (22:10)
[2025-01-20] MEDS: PANTOPRAZOLE INJ 40 MG VIAL IVP (22:10)
[2025-01-20 22:14] VITALS: BP 109/86; PULSE 63; PULSE 66; RESP 100; RESP 18; TEMP 37.3; O2SAT 100
--- NOTE | 2025-01-20 22:15 | PD.IMCONS ---
HPI Data of Consult Requesting Physician: Conrado Samaniego MD Primary Care Provider: Physician No Primary/Family Consult Narrative Reason for consult: Pain abdomen, nausea vomiting History of present illness: 19 years of female evaluated at the request of the ER physician Patient has been in and out of car ER and also [facility] emergency room sent home on all those visits She is in severe pain epigastric right upper quadrant area Called ultrasound shows sludge Pelvic ultrasound shows a 2.3 x 1.9 x 2.9 cm right ovarian cyst CT scan of the abdomen pelvis without contrast does not show any other findings Because of the multiple visits to different emergency rooms as well as still severe abdominal pain losing weight and not able to keep anything down it was best the patient be admitted cc:: cc: Conrado Samaniego MD Review of Systems Review of Systems Systems Reviewed: All systems reviewed, normal except as documented Past Medical History Surgical History OTHER SURGICAL HX: As in the history of present illness Meds Home Medications and Allergies Home Medications ?Medication ?Instructions ?Recorded ?Confirmed ?Type omeprazole 20 mg capsule,delayed 20 mg PO BID 01/20/25 01/20/25 History release sucralfate 1 gram tablet 1 g PO BID 01/20/25 01/20/25 History Allergies Allergy/AdvReac Type Severity Reaction Status Date / Time No Known Allergies Allergy Verified 01/19/25 11:18 Exam Vital Signs Temp Pulse Resp BP Pulse Ox O2 Del Method 99.1 F 69 24 H 128/86 H 100 Room Air 01/20/25 20:09 01/20/25 20:09 01/20/25 20:09 01/20/25 20:09 01/20/25 20:09 01/20/25 20:09 Constitutional Comments: Alert oriented Routine Respiratory Exam Comments: Normal to auscultation Routine Abdominal Exam Comments: Midepigastric tenderness Results Labs 01/21/25 06:00 01/21/25 06:00 Labs: Short CBC 01/20/25 Range/Units 16:53 WBC 9.0 (4.5-11.0) Thou/mm3 Hgb 14.0 (12.0-16.0) g/dL Hct 38.1 (36.0-46.0) % Plt Count 281 (140-440) Thou/mm3 BMP 01/20/25 16:53 Sodium 141 Potassium 3.6 Chloride 106 Carbon Dioxide 22.5 BUN 7 L Creatinine 0.8 Glucose 82 Calcium 9.4 Liver Function 01/20/25 Range/Units 16:53 Total Bilirubin 1.3 H (0.3-1.2) mg/dL AST 16 (0-34) U/L ALT 16 (10-49) U/L Alkaline Phosphatase 66 (46-116) U/L Albumin 4.8 (3.5-5.0) gm/dL Assessment and Plan Additional Assessment & Plan Additional Plan: # Severe abdominal pain midepigastric right upper quadrant not responsive treatment with multiple visits to the ER # Nausea vomiting Plan Advised admission to the hospital [facility] HIDA scan with ejection fraction of the gallbladder N.p.o. Consent obtained for fiberoptic esophagogastroduodenoscopy with possible biopsy possible therapeutic intervention under intravenous moderate sedation Thank you very much for the opportunity to participate in the care of this patient
[2025-01-20 22:37] LABS: Collection Type, Urine Clean Catch
[2025-01-20 22:50] LABS: Bilirubin,Urine Negative (Negative); Blood,Urine 2+ (Negative); Clarity,Urine Clear (Clear/Hazy); Color,Urine Lt-Yellow (Lt Yel-Yel); Glucose, Urine Negative (Negative); Ketones,Urine 2+ (Negative); Leukocyte Esterase,Urine Negative (Negative); Nitrite,Urine Negative (Negative); Protein,Urine Negative (Neg - Trace); RBC,Urine 22 /hpf (0-3); Specific Gravity,Urine 1.015 (1.001-1.035); Squamous Epithelial Cell,Urine 2 /hpf (0-5); Urobilinogen,Urine Negative mg/dL (0.0-1.0); WBC,Urine 3 /hpf (0-5)
[2025-01-20 22:54] LABS: Amphetamine/Methamp Scrn,U Negative (Negative); Barbiturate Screen,Urine Negative (Negative); Benzodiazepines Screen,Urine Negative (Negative); Benzoylecgonine Screen, Ur Negative (Negative); Fentanyl Screen,Urine Negative (Negative); Opiate Screen,Urine Positive (Negative); THC Screen,Urine Positive (Negative)
[2025-01-20 23:27] VITALS: BMI 26.8
[2025-01-20] MEDS: MORPHINE SULF INJ 10 MG/ML VIAL 2 MG IVP (23:51)
[2025-01-21] VITALS (17 sets, daily range): BP systolic 114–163; BP diastolic 60–106; PULSE 43–110; RESP 12–98; TEMP 36.1–37.1; O2SAT 95–100
[2025-01-21] MEDS: ONDANSETRON INJ 2 MG/ML INJ 2 ML 4 MG IV ×2 (04:30→10:49)
[2025-01-21] MEDS: MORPHINE SULF INJ 10 MG/ML VIAL 2 MG IVP ×4 (04:30→22:32)
[2025-01-21 07:04] LABS: INR 1.1 (0.9-1.3); Prothrombin Time 12.2 Seconds (9.0-12.2)
[2025-01-21 07:13] LABS: Alanine Aminotransferase 13 U/L (10-49); Albumin, Serum 3.9 gm/dL (3.5-5.0); Albumin/Globulin Ratio 1.8 (1.2-2.2); Alkaline Phosphatase 52 U/L (46-116); Anion Gap 11 (7-16); Aspartate Amino Transferase 12 U/L (0-34); BUN/Creatinine Ratio 9 Ratio (12-20); Basophils % (Auto) 1 % (0-2.5); Bilirubin,Direct 0.3 mg/dL (0.0-0.3); Bilirubin,Total 0.9 mg/dL (0.3-1.2); Blood Urea Nitrogen 7 mg/dL (9-23); C-Reactive Protein < 0.5 mg/dL (0.0-0.9); Calcium 8.4 mg/dL (8.3-10.6); Calcium (Corrected) 8.5 mg/dL (8.5-10.1); Carbon Dioxide 24.9 mMol/L (20.0-31.0); Cardiac Risk Estimate 3.8 RATIO (3.7-5.6); Chloride 110 mMol/L (98-107); Cholesterol 105 mg/dL (132-200); Creatinine (Component) 0.8 mg/dL (0.6-1.3); Eosinophils # (Auto) 0.1 Thou/mm3 (0.0-0.5); Eosinophils % (Auto) 1 % (0-10); Estimated Creatinine Clearance 128.6 mL/min (>60); Globulin 2.2 gm/dL (2.3-3.5); Glucose 88 mg/dL (74-106); HDL Cholesterol 28 mg/dL (40-60); Hematocrit 34.8 % (36.0-46.0); Immature Granulocytes % (Auto) 0 % (0-0); Immature Granulocytes Auto 0.02 Thou/mm3 (0.00-0.00); LDL Cholesterol,Calculated 65 mg/dL (0-130); Lymphocytes # (Auto) 2.4 Thou/mm3 (1.0-4.8); Lymphocytes % (Auto) 40 % (10-50); Magnesium 2.1 mg/dL (1.6-2.6); Mean Corpuscular HGB Conc 34.5 g/dl (31.0-37.0); Mean Corpuscular Hemoglobin 29.6 pg (25.0-35.0); Mean Corpuscular Volume 86 fL (80-100); Monocytes # (Auto) 0.5 Thou/mm3 (0.0-0.8); Monocytes % (Auto) 7 % (0-12); Neutrophils # (Auto) 3.1 Thou/mm3 (1.8-7.7); Neutrophils % (Auto) 51 % (37-80); Nucleated Red Blood Cell % 0 /100 WBC (0); Osmolality,Calculated 287 (275-295); Phosphorous 4.1 mg/dL (2.4-5.1); Platelet Count 205 Thou/mm3 (140-440); Potassium 3.8 mMol/L (3.4-5.1); RDW Standard Deviation 37.7 fL (36.4-46.3); Red Blood Count 4.06 Miln/mm3 (4.00-5.20); Sodium 146 mMol/L (136-145); Total Protein 6.1 gm/dL (5.7-8.2); Triglycerides 61 mg/dL (30-150); White Blood Count 6.1 Thou/mm3 (4.5-11.0); eGFR > 60 See Note
[2025-01-21] MEDS: PANTOPRAZOLE INJ 40 MG VIAL IVP ×2 (08:53→21:45)
--- NOTE | 2025-01-21 09:23 | PD.RESPRO ---
Documentation for date of: 01/21/25 Subjective Subjective Interval history: Overnight admission, no acute events noted. Seen and examined at bedside and continues to endorse abdominal pain with occasional episodes of pack pain but no CVA tenderness on exam. She does state that approximately 6 years ago she had a shoulder injury and was taking ibuprofen daily for long period of time and developed gastritis. Prior to her episodes of nausea and vomiting that brought her to the ED, states that she would get abdominal pain when eating spicy foods but inconsistently. States that her nausea is more frequent than interval of zofran so will place scopolamine patch as needed. Otherwise, vitals and labs unremarkable and pending GI recommendations. Exam Vital Signs Temp Pulse Resp BP Pulse Ox O2 Del Method 97.0 F 60 17 114/61 99 Room Air 01/21/25 08:00 01/21/25 08:00 01/21/25 08:00 01/21/25 08:00 01/21/25 08:00 01/21/25 04:00 Narrative Exam General: AOx3, mild distress, able to speak full sentences HEENT: NC/AT, mucous membranes moist, bilateral sclera anicteric Cardiovascular: regular rate and rhythm, S1/S2 present, no murmurs appreciated Pulmonary: clear to auscultation bilaterally, no rales/rhonchi/wheezes Abdominal: epigastric tenderness, soft, non-distended, no rebound/guarding, normal bowel sounds present Musculoskeletal: normal ROM, no peripheral edema Skin: warm and dry, intact, no rashes Neuro: CN II-XII intact, no focal deficits Objective Labs 01/22/25 05:22 01/22/25 05:22 Labs: Laboratory Results - last 24 hr 01/20/25 01/20/25 01/20/25 16:53 22:00 22:14 WBC 9.0 RBC 4.76 Hgb 14.0 Hct 38.1 MCV 80 MCH 29.4 MCHC 36.7 RDW Std Deviation 35.0 L Plt Count 281 Neut % (Auto) 60 Lymph % (Auto) 33 [place] % (Auto) 6 Eos % (Auto) 0 Baso % (Auto) 0 Neut # (Auto) 5.4 Lymph # (Auto) 3.0 [place] # (Auto) 0.5 Eos # (Auto) 0.0 Baso # (Auto) 0.0 Immature Gran # (Auto) 0.03 H Absolute Nucleated RBC 0.00 Immature Gran % 0 Nucleated RBC % 0 PT INR Sodium 141 Potassium 3.6 Chloride 106 Carbon Dioxide 22.5 Anion Gap 13 BUN 7 L Creatinine 0.8 Estim Creat Clear Calc Not Performed. eGFR > 60 BUN/Creatinine Ratio 9 L Glucose 82 Calculated Osmolality 278 Calcium 9.4 Corrected Calcium 9.4 Phosphorus Magnesium Total Bilirubin 1.3 H Direct Bilirubin AST 16 ALT 16 Alkaline Phosphatase 66 C-Reactive Prot, Quant Total Protein 7.6 Albumin 4.8 Globulin 2.8 Albumin/Globulin Ratio 1.7 Triglycerides Cholesterol LDL Cholesterol, Calc HDL Cholesterol Cholesterol/HDL Ratio Lipase 24 TSH Ur Collection Type Clean Catch Urine Color Lt-Yellow Urine Clarity Clear Urine pH 6.0 Ur Specific [place] 1.015 Urine Protein Negative Urine Glucose (UA) Negative Urine Ketones 2+ A Urine Blood 2+ A Urine Nitrite Negative Urine Bilirubin Negative Urine Urobilinogen (Auto) Negative Ur Leukocyte Esterase Negative Urine RBC 22 H Urine WBC 3 Ur Squamous Epith Cells 2 Urine Bacteria None Urine Opiates Screen Positive A Urine Fentanyl Screen Negative Ur Barbiturates Screen Negative U Amphetamin/Meth Scrn Negative U Benzodiazepines Scrn Negative U Cocaine Metab Screen Negative U Marijuana (THC) Screen Positive A 01/21/25 06:00 WBC 6.1 RBC 4.06 Hgb 12.0 D Hct 34.8 L MCV 86 MCH 29.6 MCHC 34.5 RDW Std Deviation 37.7 Plt Count 205 D Neut % (Auto) 51 Lymph % (Auto) 40 [place] % (Auto) 7 Eos % (Auto) 1 Baso % (Auto) 1 Neut # (Auto) 3.1 Lymph # (Auto) 2.4 [place] # (Auto) 0.5 Eos # (Auto) 0.1 Baso # (Auto) 0.0 Immature Gran # (Auto) 0.02 H Absolute Nucleated RBC 0.00 Immature Gran % 0 Nucleated RBC % 0 PT 12.2 INR 1.1 Sodium 146 H Potassium 3.8 Chloride 110 H Carbon Dioxide 24.9 Anion Gap 11 BUN 7 L Creatinine 0.8 Estim Creat Clear Calc 128.6 eGFR > 60 BUN/Creatinine Ratio 9 L Glucose 88 Calculated Osmolality 287 Calcium 8.4 Corrected Calcium 8.5 Phosphorus 4.1 Magnesium 2.1 Total Bilirubin 0.9 Direct Bilirubin 0.3 AST 12 ALT 13 Alkaline Phosphatase 52 D C-Reactive Prot, Quant < 0.5 Total Protein 6.1 Albumin 3.9 D Globulin 2.2 L Albumin/Globulin Ratio 1.8 Triglycerides 61 Cholesterol 105 L LDL Cholesterol, Calc 65 HDL Cholesterol 28 L Cholesterol/HDL Ratio 3.8 Lipase TSH 1.00 Ur Collection Type Urine Color Urine Clarity Urine pH Ur Specific [place] Urine Protein Urine Glucose (UA) Urine Ketones Urine Blood Urine Nitrite Urine Bilirubin Urine Urobilinogen (Auto) Ur Leukocyte Esterase Urine RBC Urine WBC Ur Squamous Epith Cells Urine Bacteria Urine Opiates Screen Urine Fentanyl Screen Ur Barbiturates Screen U Amphetamin/Meth Scrn U Benzodiazepines Scrn U Cocaine Metab Screen U Marijuana (THC) Screen Quality Measures Quality Measures none Assessment & Plan Assessment Current Active Medications: Generic Name Dose Route Start Last Admin Trade Name Freq PRN Reason Stop Dose Admin Acetaminophen 650 mg 01/20/25 21:20 Acetaminophen 325 Mg Tablet PO 02/19/25 21:19 Q6H PRN Mild Pain (1-3) & Fever >101.5 Hydrocodone Bitart/Acetaminophen 1 tab 01/20/25 23:36 Hydrocodone/Apap 5/325 Tablet PO 01/25/25 23:35 Q6HR PRN PAIN SCALE 4-6 (Moderate Al Hydrox/Mg Hydrox/Simethicone 30 ml 01/20/25 21:20 Mg Hyd/Al Hyd/Tricia (Maalox Reg) Susp 30 Ml Udc PO 02/19/25 21:19 Q6H PRN Indigestion Lactated Ringer's 1,000 mls @ 75 mls/hr 01/20/25 21:30 01/20/25 22:10 Lactated Ringers IV 02/19/25 21:29 75 mls/hr .[id number] JC Administration Morphine Sulfate 2 mg 01/20/25 23:35 01/21/25 04:30 Morphine Sulf Inj 10 Mg/Ml Vial IVP 01/25/25 23:34 2 mg Q4HR PRN Administration PAIN SCALE 7-10 (Severe Ondansetron HCl 4 mg 01/20/25 21:20 01/21/25 04:30 Ondansetron Inj 2 Mg/Ml Inj 2 Ml IV 02/19/25 21:19 4 mg Q6H PRN Administration NAUSEA OR VOMITING Protocol Pantoprazole Sodium 40 mg 01/20/25 21:30 01/21/25 08:53 Pantoprazole Inj 40 Mg Vial IVP 02/19/25 21:29 40 mg BID [facility] Administration Plan Melba Gloria is a 19-year-old female with past medical history of gastritis who presented to [facility] on 01/20/2025 with a chief complaint of nausea and vomiting. She was admitted for further workup for intractable abdominal pain nausea and vomiting and GI bleed. #Intractable abdominal pain #Intractable nausea and vomiting #GI bleed upper versus lower DDx: Peptic ulcer disease, gastritis, cyclical vomiting syndrome/cannabinoid hyperemesis syndrome, inflammatory bowel disease, biliary dyskinesia Presents with multiple episodes of nausea vomiting and abdominal pain for the last 10 days, multiple visits to ER, non-resolved with sucralfate and omeprazole. Reports bright red blood in stool 3 times about 5 days ago. On presentation hemoglobin within normal limits, electrolytes within normal limits, no JESSEE noted. CT abdomen pelvis from 01/14/2025 shows right adnexal cyst, otherwise benign. Urine tox screen positive for marijuana, reports last use about 10 days ago. Additionally, states she had a shoulder injury for which she used to take daily ibuprofen and had associated dyspepsia that did not resolve. ? GI consulted, appreciate recommendations ? N.p.o. ? Protonix 40 IV twice daily ? Pain management ? Maintenance LR at 75 cc/h ? Follow ESR CRP in a.m., consider colonoscopy ? GI consulted, appreciate recommendations #Hyperbilirubinemia #Gallbladder sludge Patient's bilirubin 1.3 on presentation, gallbladder ultrasound in ED on 01/19/2025 shows gallbladder sludge, negative for cholelithiasis. Direct and total bilirubin resolved. ? Will monitor for now #Right ovarian simple cyst Does report menorrhagia, pelvis ultrasound shows right ovarian simple cyst 2.3 x 1.[address] abdomen pelvis from 01/14/2025 shows right adnexal cyst. ? Continue outpatient follow-up with [employer] #THC dependence Patient advised to refrain from cannabis use. Hospital management: Disposition: pending EGD and GI recs Fluids: maintenance LR Diet: NPO Lines: PIV DVT prophylaxis: SCDs GI prophylaxis: protonix IV BID CODE STATUS: full code ----- Plan discussed with attending physician Dr. Ailin Hirsch MD PGY-1 Internal Medicine Attending Provider Attestation/Addendum I reviewed labs, imaging, EKG, home medications and prior available records. Face to face evaluation was performed by me. I have personally examined the patient and discussed assessment and plan with the IM team. I reviewed the resident note and agree with the plan with exceptions as below. 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
--- NOTE | 2025-01-21 10:17 | PC.SS ---
This is 19-year-old, single, female who presented to the ED for abdominal pain. Patient appeared alert and oriented to self, place and situation. Patient was pleasant. Patient reported that she resides at home with her mother. Patient is independent with all ADLs, no DME use. Patient assigned her mother, Lorna Gautam (phone: [phone]) as her medical decision maker. Patient's PCP is Cuca Ford. When medically clear, patient will return home.
[2025-01-21] MEDS: RINGERS LACTATED 1000 ML 1,000 ML 75 ML IV (10:38)
[2025-01-21 21:29] LABS: C-Reactive Protein < 0.5 mg/dL (0.0-0.9)
[2025-01-21 21:33] LABS: Sed Rate (ESR) < 1 mm/hr (0-20)
[2025-01-22] VITALS (8 sets, daily range): BP systolic 121–137; BP diastolic 68–78; PULSE 45–86; RESP 15–97; TEMP 36.4–36.8; O2SAT 96–99; BMI 26.9
[2025-01-22] MEDS: RINGERS LACTATED 1000 ML 1,000 ML 75 ML IV ×2 (01:53→11:26)
[2025-01-22] MEDS: MORPHINE SULF INJ 10 MG/ML VIAL 2 MG IVP (02:57)
[2025-01-22] MEDS: ONDANSETRON INJ 2 MG/ML INJ 2 ML 4 MG IV (03:00)
[2025-01-22 05:54] LABS: Basophils % (Auto) 1 % (0-2.5); Eosinophils # (Auto) 0.1 Thou/mm3 (0.0-0.5); Eosinophils % (Auto) 1 % (0-10); Hemoglobin 12.1 g/dL (12.0-16.0); Immature Granulocytes % (Auto) 0 % (0-0); Immature Granulocytes Auto 0.01 Thou/mm3 (0.00-0.00); Lymphocytes # (Auto) 2.6 Thou/mm3 (1.0-4.8); Lymphocytes % (Auto) 37 % (10-50); Mean Corpuscular HGB Conc 35.6 g/dl (31.0-37.0); Mean Corpuscular Volume 82 fL (80-100); Monocytes # (Auto) 0.5 Thou/mm3 (0.0-0.8); Monocytes % (Auto) 8 % (0-12); Neutrophils # (Auto) 3.8 Thou/mm3 (1.8-7.7); Neutrophils % (Auto) 53 % (37-80); Nucleated Red Blood Cell % 0 /100 WBC (0); Platelet Count 192 Thou/mm3 (140-440); Red Blood Count 4.17 Miln/mm3 (4.00-5.20); White Blood Count 7.1 Thou/mm3 (4.5-11.0)
[2025-01-22 06:14] LABS: INR 1.1 (0.9-1.3); Prothrombin Time 12.4 Seconds (9.0-12.2)
[2025-01-22 06:41] LABS: Alanine Aminotransferase 13 U/L (10-49); Albumin, Serum 3.9 gm/dL (3.5-5.0); Albumin/Globulin Ratio 1.7 (1.2-2.2); Alkaline Phosphatase 51 U/L (46-116); Anion Gap 14 (7-16); Aspartate Amino Transferase 15 U/L (0-34); BUN/Creatinine Ratio 6 Ratio (12-20); Bilirubin,Total 0.8 mg/dL (0.3-1.2); Blood Urea Nitrogen 5 mg/dL (9-23); Calcium 8.5 mg/dL (8.3-10.6); Calcium (Corrected) 8.6 mg/dL (8.5-10.1); Carbon Dioxide 23.4 mMol/L (20.0-31.0); Chloride 107 mMol/L (98-107); Creatinine (Component) 0.8 mg/dL (0.6-1.3); Estimated Creatinine Clearance 128.6 mL/min (>60); Globulin 2.3 gm/dL (2.3-3.5); Glucose 66 mg/dL (74-106); Osmolality,Calculated 282 (275-295); Phosphorous 3.5 mg/dL (2.4-5.1); Potassium 3.7 mMol/L (3.4-5.1); Sodium 144 mMol/L (136-145); Total Protein 6.2 gm/dL (5.7-8.2); eGFR > 60 See Note
[2025-01-22 07:50] LABS: Sed Rate (ESR) < 1 mm/hr (0-20)
--- NOTE | 2025-01-22 08:33 | XR_ITS ---
Examination: ROXANNEA, hepatobiliary radioisotope scan Gallbladder ejection fraction study. Date and time of exam: January 22, 2025 1355 hours INDICATIONS: Vomiting abdominal pain beginning 9 days ago Technique: 6 mCi of 99M Hepatolite administered. Serial imaging then obtained from immediate through 60 minutes. 1.8 mcg selective catheter Kinevac administered for gallbladder ejection fraction study. Findings: Radioisotope activity within the liver is reasonably homogenous. Gallbladder, common bile duct small bowel activity noted Impression: Gallbladder activity Abnormal gallbladder ejection fraction, 18%, normal greater than 35%
[2025-01-22] MEDS: PANTOPRAZOLE INJ 40 MG VIAL IVP ×2 (08:38→21:21)
--- NOTE | 2025-01-22 09:15 | PC.SS ---
SS follow up note; Hyda scan pending. Patient will discharge back home when medically cleared.
[2025-01-22] MEDS: HYDROmorphone INJ 2 MG/ML VIAL 0.5 MG IVP ×2 (09:58→23:17)
[2025-01-22] MEDS: PROMETHAZINE INJ 12.5 MG in SODIUM CHLORIDE 0.9% 50 ML 2.5 MG IV (10:30)
--- NOTE | 2025-01-22 11:25 | ESPR_ITS ---
Documentation for date of: 01/22/25 Subjective Subjective Interval history: Overnight, no acute events reported. Patient continues to have severe abdominal pain, and presently, morphine makes her feel drowsy and awakes her suddenly. Will try patient on Dilaudid at similar strength every 4 hours as well as Phenergan x 1 to see if patient is able to sleep better. Patient is going to be kept n.p.o. for HIDA scan scheduled for today. Patient is pending path results from recent endoscopy done yesterday which showed lots of polyps in multiple areas of the esophagus and stomach as well as diffuse inflammation throughout the stomach. Patient states that she has not been able to have a bowel movement since her last full meal was 10 days prior when her symptoms were started. Exam Vital Signs Temp Pulse Resp BP Pulse Ox O2 Del Method O2 Flow Rate 97.6 F 70 18 121/68 99 Room Air 3 01/22/25 08:00 01/22/25 08:00 01/22/25 08:00 01/22/25 08:00 01/22/25 08:00 01/22/25 08:00 01/21/25 18:50 Narrative Exam General Appearance: Pt in moderate distress, restless in bed, holding her stomach. HEENT: NC/AT, no scleral icterus, no conjunctival pallor, MMM Lungs: CTAB, no wheezes or crackles appreciated CVS: RRR, S1/S2 heard, no murmurs or rubs appreciated ABD: Epigastric tenderness, soft, non-distended, BS + in all 4 quadrants EXT: no deformity/edema/lesions/cyanosis/clubbing, radial pulses 2+ BL, DP pulses 2 + BL SKIN: Skin exam normal without any rashes. Neuro: A&O x 3. No gross neurological deficits. Motor and sensory grossly intact in B/L UL and LL. Psych: Appropriate mood and affect Objective Labs 01/22/25 05:22 01/22/25 05:22 Labs: Laboratory Results - last 24 hr 01/21/25 01/22/25 20:39 05:22 WBC 7.1 RBC 4.17 Hgb 12.1 Hct 34.0 L MCV 82 MCH 29.0 MCHC 35.6 RDW Std Deviation 36.0 L Plt Count 192 Neut % (Auto) 53 Lymph % (Auto) 37 [place] % (Auto) 8 Eos % (Auto) 1 Baso % (Auto) 1 Neut # (Auto) 3.8 Lymph # (Auto) 2.6 [place] # (Auto) 0.5 Eos # (Auto) 0.1 Baso # (Auto) 0.0 Immature Gran # (Auto) 0.01 H Absolute Nucleated RBC 0.00 Immature Gran % 0 Nucleated RBC % 0 ESR < 1 < 1 PT 12.4 H INR 1.1 Sodium 144 Potassium 3.7 Chloride 107 Carbon Dioxide 23.4 Anion Gap 14 BUN 5 L Creatinine 0.8 Estim Creat Clear Calc 128.6 eGFR > 60 BUN/Creatinine Ratio 6 L Glucose 66 L Calculated Osmolality 282 Calcium 8.5 Corrected Calcium 8.6 Phosphorus 3.5 Magnesium 2.0 Total Bilirubin 0.8 AST 15 ALT 13 Alkaline Phosphatase 51 C-Reactive Prot, Quant < 0.5 Total Protein 6.2 Albumin 3.9 Globulin 2.3 Albumin/Globulin Ratio 1.7 Quality Measures Quality Measures none Assessment & Plan Assessment Current Active Medications: Generic Name Dose Route Start Last Admin Trade Name Freq PRN Reason Stop Dose Admin Acetaminophen 650 mg 01/20/25 21:20 Acetaminophen 325 Mg Tablet PO 02/19/25 21:19 Q6H PRN Mild Pain (1-3) & Fever >101.5 Hydrocodone Bitart/Acetaminophen 1 tab 01/20/25 23:36 Hydrocodone/Apap 5/325 Tablet PO 01/25/25 23:35 Q6HR PRN PAIN SCALE 4-6 (Moderate Al Hydrox/Mg Hydrox/Simethicone 30 ml 01/20/25 21:20 Mg Hyd/Al Hyd/Tricia (Maalox Reg) Susp 30 Ml Udc PO 02/19/25 21:19 Q6H PRN Indigestion Hydromorphone HCl 0.5 mg 01/22/25 09:47 01/22/25 09:58 Hydromorphone Inj 2 Mg/Ml Vial IVP 01/27/25 09:46 0.5 mg Q4HR PRN Administration severe pain 7-10 Lactated Ringer's 1,000 mls @ 75 mls/hr 01/20/25 21:30 01/22/25 01:53 Lactated Ringers IV 02/19/25 21:29 75 mls/hr .[id number] JC Administration Metoclopramide HCl 10 mg 01/22/25 09:46 Metoclopramide Inj 5 Mg/Ml Vial 2 Ml IVP 02/21/25 09:45 Q6HR PRN NAUSEA OR VOMITING Protocol Morphine Sulfate 2 mg 01/20/25 23:35 01/22/25 02:57 Morphine Sulf Inj 10 Mg/Ml Vial IVP 01/25/25 23:34 2 mg Q4HR PRN Administration PAIN SCALE 7-10 (Severe Pantoprazole Sodium 40 mg 01/20/25 21:30 01/22/25 08:38 Pantoprazole Inj 40 Mg Vial IVP 02/19/25 21:29 40 mg BID JC Administration Sucralfate 1 gm 01/22/25 14:00 Sucralfate Susp 1 Gm/10 Ml Udc PO 02/21/25 13:59 TID JC Plan Melba Gloria is a 19-year-old female with past medical history of gastritis who presented to [facility] on 01/20/2025 with a chief complaint of nausea and vomiting. She was admitted for further workup for intractable abdominal pain nausea and vomiting and GI bleed. #Intractable abdominal pain #Intractable nausea and vomiting #GI bleed upper versus lower DDx: Peptic ulcer disease, gastritis, cyclical vomiting syndrome/cannabinoid hyperemesis syndrome, inflammatory bowel disease, biliary dyskinesia Presents with multiple episodes of nausea vomiting and abdominal pain for the last 10 days, multiple visits to ER, non-resolved with sucralfate and omeprazole. Reports bright red blood in stool 3 times about 5 days ago. On presentation hemoglobin within normal limits, electrolytes within normal limits, no JESSEE noted. CT abdomen pelvis from 01/14/2025 shows right adnexal cyst, otherwise benign. Urine tox screen positive for marijuana, reports last use about 10 days ago. Additionally, states she had a shoulder injury for which she used to take daily ibuprofen and had associated dyspepsia that did not resolve. ESR and CRP negative. ? GI consulted, appreciate recommendations ? N.p.o. ? Protonix 40 IV twice daily ? Sucralfate 1 g 3 times daily ? Pain management with Dilaudid instead of morphine and [place] ? Maintenance LR at 75 cc/h ? Consider colonoscopy ? GI consulted, appreciate recommendations, will have patient do HIDA scan today #Hyperbilirubinemia #Gallbladder sludge Patient's bilirubin 1.3 on presentation, gallbladder ultrasound in ED on 01/19/2025 shows gallbladder sludge, negative for cholelithiasis. Direct and total bilirubin resolved. ? Will monitor for now ? HIDA scan today #Right ovarian simple cyst Does report menorrhagia, pelvis ultrasound shows right ovarian simple cyst 2.3 x 1.[address] abdomen pelvis from 01/14/2025 shows right adnexal cyst. ? Continue outpatient follow-up with [employer] #THC dependence Patient advised to refrain from cannabis use. Hospital management: Disposition: pending HIDA scan and GI recs Fluids: maintenance LR Diet: NPO, except with p.o. meds Lines: PIV DVT prophylaxis: SCDs GI prophylaxis: protonix IV BID and sucralfate CODE STATUS: full code Patient's plan and care discussed with my attending, Dr. Ailin Bell MD PGY-2 Attending Provider Attestation/Addendum I reviewed labs, imaging, EKG, home medications and prior available records. Face to face evaluation was performed by me. I have personally examined the patient and discussed assessment and plan with the IM team. I reviewed the resident note and agree with the plan with exceptions as below. Intractable nausea and vomiting Epigastric pain NSAIDs use Hypernatremia Right ovarian cyst Consulted GI for EGD: Status post EGD that showed esophagitis. Continue PPI and sucralfate Discussed with GI: Ordered HIDA scan. Keep the patient n.p.o. Stop NSAIDs Started duloxetine for chronic pain. 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
--- NOTE | 2025-01-22 14:27 | PC.NURSE ---
Patient went to procedure. Pt alert and oriented. --Ja
[2025-01-22] MEDS: METOCLOPRAMIDE INJ 5 MG/ML VIAL 2 ML 10 MG IVP (18:04)
--- NOTE | 2025-01-22 21:12 | ESPR_ITS ---
Documentation for date of: 01/22/25 Subjective Subjective Interval history: CCK HIDA scan with ejection fraction shows ejection fraction to be 18% Recommend surgical consultation for laparoscopic versus open cholecystectomy Exam Vital Signs Temp Pulse Resp BP Pulse Ox O2 Del Method O2 Flow Rate 98.1 F 58 L 17 122/74 96 Room Air 3 01/22/25 20:00 01/22/25 20:46 01/22/25 20:46 01/22/25 20:00 01/22/25 20:00 01/22/25 20:00 01/21/25 18:50 Objective Labs 01/22/25 05:22 01/22/25 05:22 Labs: Laboratory Results - last 24 hr 01/21/25 01/22/25 20:39 05:22 WBC 7.1 RBC 4.17 Hgb 12.1 Hct 34.0 L MCV 82 MCH 29.0 MCHC 35.6 RDW Std Deviation 36.0 L Plt Count 192 Neut % (Auto) 53 Lymph % (Auto) 37 [place] % (Auto) 8 Eos % (Auto) 1 Baso % (Auto) 1 Neut # (Auto) 3.8 Lymph # (Auto) 2.6 [place] # (Auto) 0.5 Eos # (Auto) 0.1 Baso # (Auto) 0.0 Immature Gran # (Auto) 0.01 H Absolute Nucleated RBC 0.00 Immature Gran % 0 Nucleated RBC % 0 ESR < 1 < 1 PT 12.4 H INR 1.1 Sodium 144 Potassium 3.7 Chloride 107 Carbon Dioxide 23.4 Anion Gap 14 BUN 5 L Creatinine 0.8 Estim Creat Clear Calc 128.6 eGFR > 60 BUN/Creatinine Ratio 6 L Glucose 66 L Calculated Osmolality 282 Calcium 8.5 Corrected Calcium 8.6 Phosphorus 3.5 Magnesium 2.0 Total Bilirubin 0.8 AST 15 ALT 13 Alkaline Phosphatase 51 C-Reactive Prot, Quant < 0.5 Total Protein 6.2 Albumin 3.9 Globulin 2.3 Albumin/Globulin Ratio 1.7 Impressions Impression: Biliary dyskinesia gastritis biopsies pending Esophagitis plan Clear liquid diet till 12 midnight Then n.p.o. Assessment & Plan A&P Narrative # Severe abdominal pain midepigastric right upper quadrant not responsive treatment with multiple visits to the ER # Nausea vomiting Plan Advised admission to the hospital CCK HIDA scan with ejection fraction of the gallbladder N.p.o. Consent obtained for fiberoptic esophagogastroduodenoscopy with possible biopsy possible therapeutic intervention under intravenous moderate sedation Thank you very much for the opportunity to participate in the care of this patient Time Spent With Patient Time: Total time spent is greater than 50% in coordination of care (as documented) at patient's floor/unit and/or counseling patient:
--- NOTE | 2025-01-22 21:18 | PD.ADDPROG ---
Addendum Progress Note Addendum Date of report being addended: 01/22/25 Narrative: Consultation with Dr. Max called for laparoscopic versus open cholecystectomy
[2025-01-22] MEDS: SUCRALFATE SUSP 1 GM/10 ML UDC PO (21:21)
[2025-01-22] MEDS: HYDROcodone/APAP 5/325 TABLET 1 TAB PO (21:23)
[2025-01-23] VITALS (15 sets, daily range): BP systolic 106–155; BP diastolic 59–91; PULSE 40–88; RESP 13–97; TEMP 36.2–36.6; O2SAT 95–100
[2025-01-23] MEDS: RINGERS LACTATED 1000 ML 1,000 ML 75 ML IV ×2 (02:26→17:43)
[2025-01-23] MEDS: HYDROmorphone INJ 2 MG/ML VIAL 0.5 MG IVP ×2 (05:55→20:08)
[2025-01-23 06:27] LABS: Basophils % (Auto) 1 % (0-2.5); Eosinophils # (Auto) 0.2 Thou/mm3 (0.0-0.5); Eosinophils % (Auto) 3 % (0-10); Hemoglobin 12.5 g/dL (12.0-16.0); Immature Granulocytes % (Auto) 0 % (0-0); Immature Granulocytes Auto 0.01 Thou/mm3 (0.00-0.00); Lymphocytes # (Auto) 2.9 Thou/mm3 (1.0-4.8); Lymphocytes % (Auto) 43 % (10-50); Mean Corpuscular HGB Conc 35.7 g/dl (31.0-37.0); Mean Corpuscular Hemoglobin 29.2 pg (25.0-35.0); Mean Corpuscular Volume 82 fL (80-100); Monocytes # (Auto) 0.6 Thou/mm3 (0.0-0.8); Monocytes % (Auto) 8 % (0-12); Neutrophils % (Auto) 45 % (37-80); Nucleated Red Blood Cell % 0 /100 WBC (0); Platelet Count 200 Thou/mm3 (140-440); RDW Standard Deviation 35.5 fL (36.4-46.3); Red Blood Count 4.28 Miln/mm3 (4.00-5.20); White Blood Count 6.8 Thou/mm3 (4.5-11.0)
[2025-01-23 06:33] LABS: INR 1.2 (0.9-1.3); Prothrombin Time 12.8 Seconds (9.0-12.2)
[2025-01-23 06:53] LABS: Alanine Aminotransferase 12 U/L (10-49); Albumin, Serum 3.9 gm/dL (3.5-5.0); Albumin/Globulin Ratio 1.8 (1.2-2.2); Alkaline Phosphatase 52 U/L (46-116); Anion Gap 11 (7-16); Aspartate Amino Transferase 12 U/L (0-34); BUN/Creatinine Ratio 6 Ratio (12-20); Bilirubin,Total 0.9 mg/dL (0.3-1.2); Blood Urea Nitrogen < 5 mg/dL (9-23); Calcium 8.4 mg/dL (8.3-10.6); Calcium (Corrected) 8.5 mg/dL (8.5-10.1); Carbon Dioxide 25.1 mMol/L (20.0-31.0); Chloride 106 mMol/L (98-107); Creatinine (Component) 0.8 mg/dL (0.6-1.3); Estimated Creatinine Clearance 126.2 mL/min (>60); Globulin 2.2 gm/dL (2.3-3.5); Glucose 75 mg/dL (74-106); Osmolality,Calculated 279 (275-295); Phosphorous 3.6 mg/dL (2.4-5.1); Potassium 3.4 mMol/L (3.4-5.1); Sodium 142 mMol/L (136-145); Total Protein 6.1 gm/dL (5.7-8.2); eGFR > 60 See Note
[2025-01-23 09:08] LABS: Stool for WBCs Negative (Negative)
[2025-01-23] MEDS: PANTOPRAZOLE INJ 40 MG VIAL IVP ×2 (09:09→21:12)
[2025-01-23] MEDS: METOCLOPRAMIDE INJ 5 MG/ML VIAL 2 ML 10 MG IVP (09:10)
[2025-01-23 09:33] LABS: Clostridium Difficile PCR Negative (Negative)
--- NOTE | 2025-01-23 09:38 | ESPR_ITS ---
Documentation for date of: 01/23/25 Subjective Subjective Interval history: No acute overnight events reported. Seen and examined at bedside and continues to endorse abdominal pain with improved nausea/vomiting. Continues to endorse intermittent back pain and also states she had 2 episodes of loose BMs this morning that were nonbloody. HIDA scan showed EF 18% and so general surgery was consulted, pending recommendations. Otherwise, vital signs and labs largely unremarkable. Exam Vital Signs Temp Pulse Resp BP Pulse Ox O2 Del Method O2 Flow Rate 97.4 F 51 L 17 138/77 H 99 Room Air 3 01/23/25 04:00 01/23/25 04:00 01/23/25 04:00 01/23/25 04:00 01/23/25 04:00 01/23/25 04:00 01/21/25 18:50 Narrative Exam General: AOx3, no acute distress, able to speak full sentences HEENT: NC/AT, mucous membranes moist, bilateral sclera anicteric Cardiovascular: regular rate and rhythm, S1/S2 present, no murmurs appreciated Pulmonary: clear to auscultation bilaterally, no rales/rhonchi/wheezes Abdominal: epigastric tenderness, soft, non-tender, non-distended, no rebound/guarding, normal bowel sounds present Musculoskeletal: normal ROM, no peripheral edema Skin: warm and dry, intact, no rashes Neuro: CN II-XII intact, no focal deficits Objective Labs 01/23/25 05:07 01/23/25 05:07 Labs: Laboratory Results - last 24 hr 01/21/25 01/23/25 23:04 05:07 WBC 6.8 RBC 4.28 Hgb 12.5 Hct 35.0 L MCV 82 MCH 29.2 MCHC 35.7 RDW Std Deviation 35.5 L Plt Count 200 Neut % (Auto) 45 Lymph % (Auto) 43 [place] % (Auto) 8 Eos % (Auto) 3 Baso % (Auto) 1 Neut # (Auto) 3.0 Lymph # (Auto) 2.9 [place] # (Auto) 0.6 Eos # (Auto) 0.2 Baso # (Auto) 0.0 Immature Gran # (Auto) 0.01 H Absolute Nucleated RBC 0.00 Immature Gran % 0 Nucleated RBC % 0 PT 12.8 H INR 1.2 Sodium 142 Potassium 3.4 Chloride 106 Carbon Dioxide 25.1 Anion Gap 11 BUN < 5 L Creatinine 0.8 Estim Creat Clear Calc 126.2 eGFR > 60 BUN/Creatinine Ratio 6 L Glucose 75 Calculated Osmolality 279 Calcium 8.4 Corrected Calcium 8.5 Phosphorus 3.6 Magnesium 2.0 Total Bilirubin 0.9 AST 12 ALT 12 Alkaline Phosphatase 52 Total Protein 6.1 Albumin 3.9 Globulin 2.2 L Albumin/Globulin Ratio 1.8 Stool for White Cells Negative Stl C. diff Tox B Gene Negative Quality Measures Quality Measures none Assessment & Plan Assessment Current Active Medications: Generic Name Dose Route Start Last Admin Trade Name Freq PRN Reason Stop Dose Admin Acetaminophen 650 mg 01/20/25 21:20 Acetaminophen 325 Mg Tablet PO 02/19/25 21:19 Q6H PRN Mild Pain (1-3) & Fever >101.5 Hydrocodone Bitart/Acetaminophen 1 tab 01/20/25 23:36 01/22/25 21:23 Hydrocodone/Apap 5/325 Tablet PO 01/25/25 23:35 1 tab Q6HR PRN Administration PAIN SCALE 4-6 (Moderate Al Hydrox/Mg Hydrox/Simethicone 30 ml 01/20/25 21:20 Mg Hyd/Al Hyd/Tricia (Maalox Reg) Susp 30 Ml Udc PO 02/19/25 21:19 Q6H PRN Indigestion Duloxetine HCl 30 mg 01/22/25 18:00 01/23/25 09:09 Duloxetine Hcl 30 Mg Capsule PO 02/21/25 17:59 Not Given QDAY JC Hydromorphone HCl 0.5 mg 01/22/25 20:40 01/23/25 05:55 Hydromorphone Inj 2 Mg/Ml Vial IVP 01/27/25 20:39 0.5 mg Q4HR PRN Administration severe pain 7-10 Lactated Ringer's 1,000 mls @ 75 mls/hr 01/20/25 21:30 01/23/25 02:26 Lactated Ringers IV 02/19/25 21:29 75 mls/hr .[id number] JC Administration Metoclopramide HCl 10 mg 01/22/25 09:46 01/23/25 09:10 Metoclopramide Inj 5 Mg/Ml Vial 2 Ml IVP 02/21/25 09:45 10 mg Q6HR PRN Administration NAUSEA OR VOMITING Protocol Morphine Sulfate 2 mg 01/20/25 23:35 01/22/25 02:57 Morphine Sulf Inj 10 Mg/Ml Vial IVP 01/25/25 23:34 2 mg Q4HR PRN Administration PAIN SCALE 7-10 (Severe Pantoprazole Sodium 40 mg 01/20/25 21:30 01/23/25 09:09 Pantoprazole Inj 40 Mg Vial IVP 02/19/25 21:29 40 mg BID JC Administration Sucralfate 1 gm 01/22/25 14:00 01/23/25 05:51 Sucralfate Susp 1 Gm/10 Ml Udc PO 02/21/25 13:59 Not Given TID JC Plan Melba Gloria is a 19-year-old female with past medical history of gastritis who presented to [facility] on 01/20/2025 with a chief complaint of nausea and vomiting. She was admitted for further workup for intractable abdominal pain nausea and vomiting and GI bleed. #Intractable abdominal pain #Intractable nausea and vomiting #GI bleed upper versus lower DDx: Peptic ulcer disease, gastritis, cyclical vomiting syndrome/cannabinoid hyperemesis syndrome, inflammatory bowel disease, biliary dyskinesia Presents with multiple episodes of nausea vomiting and abdominal pain for the last 10 days, multiple visits to ER, non-resolved with sucralfate and omeprazole. Reports bright red blood in stool 3 times about 5 days ago. On presentation hemoglobin within normal limits, electrolytes within normal limits, no JESSEE noted. CT abdomen pelvis from 01/14/2025 shows right adnexal cyst, otherwise benign. Urine tox screen positive for marijuana, reports last use about 10 days ago. Additionally, states she had a shoulder injury for which she used to take daily ibuprofen and had associated dyspepsia that did not resolve. ESR and CRP negative. EGD 01/21: Esophagitis in lower third of esophagus status post biopsies, diffuse moderate inflammation in the entire stomach s/p biopsy ? GI consulted, appreciate recommendations ? Protonix 40 IV twice daily ? Sucralfate 1 g 3 times daily ? Pain management with Dilaudid instead of morphine and Ney #Hyperbilirubinemia #Gallbladder sludge Patient's bilirubin 1.3 on presentation, gallbladder ultrasound in ED on 01/19/2025 shows gallbladder sludge, negative for cholelithiasis. Direct and total bilirubin resolved. HIDA 01/22: Ejection fraction 18% ? General surgery consulted, appreciate recommendations ? N.p.o. ? Maintenance LR at 75 cc/h #Right ovarian simple cyst Does report menorrhagia, pelvis ultrasound shows right ovarian simple cyst 2.3 x 1.[address] abdomen pelvis from 01/14/2025 shows right adnexal cyst. ? Continue outpatient follow-up with [facility] #THC dependence Patient advised to refrain from cannabis use. Hospital management: Disposition: pending general surgery recommendations Fluids: maintenance LR Diet: NPO, except with p.o. meds Lines: PIV DVT prophylaxis: SCDs GI prophylaxis: protonix IV BID and sucralfate CODE STATUS: full code ----- Plan discussed with attending physician Dr. Ailin Hirsch MD PGY-1 Internal Medicine Attending Provider Attestation/Addendum I reviewed labs, imaging, EKG, home medications and prior available records. Face to face evaluation was performed by me. I have personally examined the patient and discussed assessment and plan with the IM team. I reviewed the resident note and agree with the plan with exceptions as below. Intractable nausea and vomiting Epigastric pain NSAIDs use Hypernatremia Right ovarian cyst Consulted GI for EGD: Status post EGD that showed esophagitis. Continue PPI and sucralfate Discussed with GI: Ordered HIDA scan that showed decreased ejection fraction of the gallbladder. Consulted general surgery for laparoscopic cholecystectomy. Kept the patient n.p.o. Stop NSAIDs Started duloxetine for chronic pain. Continue IV opiates Management of nausea/vomiting/pain as needed Monitor [employer] for the right ovarian cyst
--- NOTE | 2025-01-23 11:40 | PD.SURCONS ---
HPI Consult details Consult date: 01/22/25 Reason for consultation narrative: Right upper quadrant abdominal pain with nausea and vomiting Requesting physician: Maxine Oswald History of present illness: 19-year-old female without significant past medical history was admitted with abdominal pain with nausea and vomiting. She has not been able to eat or tolerate any food. Her laboratory workup was unremarkable. CT scan revealed right adnexal cyst. Abdominal ultrasound revealed gallbladder sludge without evidence of cholecystitis. HIDA scan revealed biliary dyskinesia with ejection fraction of 18%. She also underwent an EGD that revealed distal esophagitis and gastritis. Review of Systems Constitutional Constitutional: Denies chills and Denies fever(s) Cardiovascular Cardiovascular: Denies chest pain Respiratory Respiratory: Denies cough Gastrointestinal Gastrointestinal: Reports abdominal pain, Reports nausea and Reports vomiting Genitourinary Genitourinary: Denies difficulty voiding Hematologic/Lymphatic Hematologic/Lymphatic: Denies easy bleeding and Denies easy bruising Past Medical History Surgical History OTHER SURGICAL HX: No surgeries in the past Social History SMOKING STATUS: Never smoker SUBSTANCE USE: does not use ALCOHOL: Never Meds Home Medications and Allergies Home Medications ?Medication ?Instructions ?Recorded ?Confirmed ?Type omeprazole 20 mg capsule,delayed 20 mg PO BID 01/20/25 01/20/25 History release sucralfate 1 gram tablet 1 g PO BID 01/20/25 01/20/25 History Allergies Allergy/AdvReac Type Severity Reaction Status Date / Time No Known Allergies Allergy Verified 01/19/25 11:18 Exam Vital Signs Temp Pulse Resp BP Pulse Ox O2 Del Method O2 Flow Rate 97.2 F 88 17 106/59 L 98 Room Air 3 01/23/25 08:00 01/23/25 10:09 01/23/25 10:09 01/23/25 08:00 01/23/25 08:00 01/23/25 08:00 01/21/25 18:50 Constitutional Constitutional: no acute distress Routine Abdominal Exam Comments: Epigastric and right upper quadrant tenderness to palpation with guarding, no rebound tenderness or peritonitis at this time Results Results: Laboratory Laboratory results: results reviewed Results: Imaging Imaging narrative: CT scan of abdomen pelvis, abdominal ultrasound and HIDA scan images reviewed, radiologist interpretation noted Assessment & Plan Problem List (1) Biliary dyskinesia: Status: Acute Plan Plan for laparoscopic possible open cholecystectomy. Risks include but not limited to infection, bleeding, injury to bowel, liver, stomach, bile duct, retained stone, bile leak, abdominal sepsis and or abdominal abscess, need for further procedure and or operation discussed with the patient. Benefits and alternatives explained to her, all her questions answered, she agreed and consented to proceed with the operation. I wish to extend my most sincere thanks to Dr. Oswald for consulting me and allowing me to evaluate and participate in care of this patient.
--- NOTE | 2025-01-23 15:52 | ESOP_ITS ---
Date of Procedure 01/23/25 Pre Op Diagnosis Biliary dyskinesia Post Op Diagnosis Biliary dyskinesia Chronic cholecystitis Procedure Laparoscopic cholecystectomy Findings Moderately distended gallbladder with evidence of chronic cholecystitis Procedure Description Patient was brought into the operating room in supine position. After adminis tration of general endotracheal anesthesia abdomen was prepped and draped in standard surgical manner. A Veress needle was inserted through the umbilicus and pneumoperitoneum was obtained up to 15 mmHg. The Veress needle was then removed, a 5 mm infraumbilical incision was made and the 5mm trocar was inserted. Laparoscopic camera was placed. Under direct visualization a laparoscopic camera a 10 mm trocar was placed in subxiphoid and two 5 mm trocars placed in right upper quadrant. The gallbladder was identified and was noted to be moderately distended with evidence of chronic cholecystitis. It was retracted cephalad and laterally. Dissection started near the infundibulum of gallbladder where cystic duct and gallbladder junction clearly identified. The cystic duct was circumferentially dissected off the peritoneum and surrounding inflammatory tissue. The critical view of safety was clearly demonstrated. Cystic duct was then divided between 2 endoclips proximally and one distally. The cystic artery was similarly dissected and divided. The gallbladder was then from the liver bed using electrocautery. The gallbladder was then placed inside an Endo Catch and removed from the abdomen utilizing subxiphoid trocar site. The area was copiously and thoroughly washed and irrigated, all the fluid was suctioned and the suction fluid returned clear. Hemostasis achieved using electrocautery. Endoclips noted be in place and intact without any bleeding or any leakage. Hemostasis was adequate and satisfactory. The subxiphoid trocar sites fascial defect was closed with 0 Vicryl using Endo Closure device. Instruments and trocars removed, pneumoperitoneum was evacuated and the incisions closed with 4-0 Monocryl in subcuticular fashion. Instrument needle and sponge counts were all reported to be correct X2. Patient tolerated the procedure well, was extubated, breathing spontaneously and without difficulty and was transferred to postanesthesia care in stable condition. Anesthesia GETA and local Pathology / specimen Other (Gallbladder) Estimated Blood Loss 10 Condition Stable Disposition PACU Surgeon Cali Max MD Surgical Staff Operation Date: 01/23/25 16:15 Case Staff Anesthesiologist: Jas Perez RN First Assistant: Elizabeth Raphael
[2025-01-23] MEDS: HYDROmorphone INJ 2 MG/ML VIAL 0.4 MG IVP ×2 (16:24→16:54)
[2025-01-23] MEDS: ACETAMINOPHEN IVPB 1,000 MG/100 ML VIAL 250 MG IV ×2 (16:26→21:12)
[2025-01-23] MEDS: fentaNYL CIT INJ 50 mCg/ML AMP 2ML 25 MCG IVP (17:07)
--- NOTE | 2025-01-23 17:23 | SUR.PHASEI ---
1608: pt arrived to PACU via gurney drowsy but arouses to voice, breathing unlabored, dressing to abdomen clean, dry, and intact, report from Kiley SINCLAIR, and Dr Perez 1630: pt able to tolerate oral fluids without difficulty swallowing or n/v 1645: pt able to ambulate to bathroom to urinate 1723: pt awake, alert, able to follow commands, breathing unlabored, dressing to abdomen clean, dry, and intact, report called to Lorna SINCLAIR, pt transferred to room at this time.
--- NOTE | 2025-01-23 20:32 | ESPR_ITS ---
Documentation for date of: 01/23/25 Subjective Subjective Interval history: Patient status post laparoscopic cholecystectomy Findings are consistent with dilated gallbladder with chronic cholecystitis Exam Vital Signs Temp Pulse Resp BP Pulse Ox O2 Del Method O2 Flow Rate 97.3 F 60 17 140/74 H 95 Room Air 2 01/23/25 20:00 01/23/25 20:00 01/23/25 20:00 01/23/25 20:00 01/23/25 20:00 01/23/25 20:00 01/23/25 16:18 Objective Labs 01/23/25 05:07 01/23/25 05:07 Labs: Laboratory Results - last 24 hr 01/21/25 01/23/25 23:04 05:07 WBC 6.8 RBC 4.28 Hgb 12.5 Hct 35.0 L MCV 82 MCH 29.2 MCHC 35.7 RDW Std Deviation 35.5 L Plt Count 200 Neut % (Auto) 45 Lymph % (Auto) 43 [place] % (Auto) 8 Eos % (Auto) 3 Baso % (Auto) 1 Neut # (Auto) 3.0 Lymph # (Auto) 2.9 [place] # (Auto) 0.6 Eos # (Auto) 0.2 Baso # (Auto) 0.0 Immature Gran # (Auto) 0.01 H Absolute Nucleated RBC 0.00 Immature Gran % 0 Nucleated RBC % 0 PT 12.8 H INR 1.2 Sodium 142 Potassium 3.4 Chloride 106 Carbon Dioxide 25.1 Anion Gap 11 BUN < 5 L Creatinine 0.8 Estim Creat Clear Calc 126.2 eGFR > 60 BUN/Creatinine Ratio 6 L Glucose 75 Calculated Osmolality 279 Calcium 8.4 Corrected Calcium 8.5 Phosphorus 3.6 Magnesium 2.0 Total Bilirubin 0.9 AST 12 ALT 12 Alkaline Phosphatase 52 Total Protein 6.1 Albumin 3.9 Globulin 2.2 L Albumin/Globulin Ratio 1.8 Stool for White Cells Negative Stl C. diff Tox B Gene Negative Impressions Impression: # Biliary dyskinesia status post laparoscopic cholecystectomy with distended gallbladder changes consistent with chronic cholecystitis Advance diet as tolerated Assessment & Plan A&P Narrative # Severe abdominal pain midepigastric right upper quadrant not responsive treatment with multiple visits to the ER # Nausea vomiting Plan Advised admission to the hospital CCK HIDA scan with ejection fraction of the gallbladder N.p.o. Consent obtained for fiberoptic esophagogastroduodenoscopy with possible biopsy possible therapeutic intervention under intravenous moderate sedation Thank you very much for the opportunity to participate in the care of this patient Time Spent With Patient Time: Total time spent is greater than 50% in coordination of care (as documented) at patient's floor/unit and/or counseling patient:
[2025-01-23] MEDS: SUCRALFATE SUSP 1 GM/10 ML UDC PO (21:13)
[2025-01-23] MEDS: DOCUSATE SOD 100 MG CAPSULE PO (21:13)
[2025-01-24] VITALS (8 sets, daily range): BP systolic 119–135; BP diastolic 68–96; PULSE 47–72; RESP 16–18; TEMP 36.1–36.6; O2SAT 94–98
[2025-01-24] MEDS: HYDROmorphone INJ 2 MG/ML VIAL 0.5 MG IVP ×4 (02:10→21:49)
[2025-01-24] MEDS: ACETAMINOPHEN IVPB 1,000 MG/100 ML VIAL 250 MG IV ×2 (04:32→09:32)
[2025-01-24 05:51] LABS: Basophils % (Auto) 0 % (0-2.5); Eosinophils % (Auto) 0 % (0-10); Hematocrit 38.2 % (36.0-46.0); Hemoglobin 13.6 g/dL (12.0-16.0); Immature Granulocytes % (Auto) 0 % (0-0); Immature Granulocytes Auto 0.02 Thou/mm3 (0.00-0.00); Lymphocytes # (Auto) 1.3 Thou/mm3 (1.0-4.8); Lymphocytes % (Auto) 19 % (10-50); Mean Corpuscular HGB Conc 35.6 g/dl (31.0-37.0); Mean Corpuscular Hemoglobin 28.9 pg (25.0-35.0); Mean Corpuscular Volume 81 fL (80-100); Monocytes # (Auto) 0.1 Thou/mm3 (0.0-0.8); Monocytes % (Auto) 2 % (0-12); Neutrophils # (Auto) 5.3 Thou/mm3 (1.8-7.7); Neutrophils % (Auto) 79 % (37-80); Nucleated Red Blood Cell % 0 /100 WBC (0); Platelet Count 223 Thou/mm3 (140-440); RDW Standard Deviation 34.5 fL (36.4-46.3); White Blood Count 6.7 Thou/mm3 (4.5-11.0)
[2025-01-24 06:22] LABS: Alanine Aminotransferase 29 U/L (10-49); Albumin, Serum 4.4 gm/dL (3.5-5.0); Albumin/Globulin Ratio 1.8 (1.2-2.2); Alkaline Phosphatase 59 U/L (46-116); Anion Gap 10 (7-16); Aspartate Amino Transferase 31 U/L (0-34); BUN/Creatinine Ratio 6 Ratio (12-20); Bilirubin,Total 0.8 mg/dL (0.3-1.2); Blood Urea Nitrogen < 5 mg/dL (9-23); Calcium 9.2 mg/dL (8.3-10.6); Calcium (Corrected) 9.2 mg/dL (8.5-10.1); Carbon Dioxide 24.6 mMol/L (20.0-31.0); Chloride 104 mMol/L (98-107); Creatinine (Component) 0.8 mg/dL (0.6-1.3); Estimated Creatinine Clearance 126.2 mL/min (>60); Globulin 2.5 gm/dL (2.3-3.5); Glucose 131 mg/dL (74-106); Osmolality,Calculated 276 (275-295); Phosphorous 4.1 mg/dL (2.4-5.1); Potassium 4.2 mMol/L (3.4-5.1); Sodium 139 mMol/L (136-145); Total Protein 6.9 gm/dL (5.7-8.2); eGFR > 60 See Note
[2025-01-24] MEDS: SUCRALFATE SUSP 1 GM/10 ML UDC PO ×3 (06:22→21:38)
[2025-01-24] MEDS: RINGERS LACTATED 1000 ML 1,000 ML 75 ML IV ×2 (06:23→21:50)
[2025-01-24] MEDS: PANTOPRAZOLE INJ 40 MG VIAL IVP ×2 (08:30→21:38)
[2025-01-24] MEDS: DULoxetine HCL 30 MG CAPSULE PO (08:31)
[2025-01-24] MEDS: DOCUSATE SOD 100 MG CAPSULE PO (08:31)
--- NOTE | 2025-01-24 09:06 | PC.SS ---
Team A reported that the pts galbladder was removed and at this time the pt is on IV pain meds. If they can transition the pt to oral pain meds today, then pt will d/c today.
[2025-01-24] MEDS: HYDROcodone/APAP 5/325 TABLET 1 TAB PO (09:33)
[2025-01-24] MEDS: SIMETHICONE 80 MG CHEW PO (11:40)
--- NOTE | 2025-01-24 11:50 | PD.SURPROG ---
Documentation for date of: 01/24/25 Subjective Subjective Narrative: Pt is seen and examined. She is crying in pain. She denies nausea of vomiting Exam Vital Signs Temp Pulse Resp BP Pulse Ox O2 Del Method O2 Flow Rate 97.1 F 63 18 119/68 94 L Room Air 2 01/24/25 08:00 01/24/25 08:00 01/24/25 08:00 01/24/25 08:00 01/24/25 08:00 01/24/25 08:00 01/23/25 16:18 Constitutional Constitutional: no acute distress Routine Abdominal Exam Abdominal: Present soft, normoactive bowel sounds and tenderness (Incisions are clean, dry and intact. She has epigastric devika-incisional tenderness. Her pain is out of proportion to physical exam); Absent distended Assessment & Plan Assessment Additional comments: POD#1 s/p laparoscopic cholecystectomy Plan Advance to low fat diet. Pain medication as needed. Procedures Procedures Laparoscopic cholecystectomy
--- NOTE | 2025-01-24 12:28 | ESPR_ITS ---
Documentation for date of: 01/24/25 Subjective Subjective Interval history: No acute overnight events noted. Seen and examined at bedside patient endorses significant abdominal pain after undergoing successful laparoscopic cholecystectomy yesterday. Incision sites C/D/I, diet advanced to low-fat per general surgery. Will monitor for 1 more day as patient continues to require IV pain medications. She was able to have a bowel movement today and states that abdominal pain increases when she eats food but denies nausea or vomiting. Exam Vital Signs Temp Pulse Resp BP Pulse Ox O2 Del Method O2 Flow Rate 97.1 F 60 18 119/68 94 L Room Air 2 01/24/25 08:00 01/24/25 12:00 01/24/25 08:00 01/24/25 08:00 01/24/25 08:00 01/24/25 08:00 01/23/25 16:18 Narrative Exam General: AOx3, acute distress from abdominal pain, able to speak full sentences HEENT: NC/AT, mucous membranes moist, bilateral sclera anicteric Cardiovascular: regular rate and rhythm, S1/S2 present, no murmurs appreciated Pulmonary: clear to auscultation bilaterally, no rales/rhonchi/wheezes Abdominal: epigastric tenderness, soft, non-tender, non-distended, no rebound/guarding, normal bowel sounds present Musculoskeletal: normal ROM, no peripheral edema Skin: warm and dry, intact, no rashes Neuro: CN II-XII intact, no focal deficits Objective Labs 01/24/25 04:37 01/24/25 04:37 Labs: Laboratory Results - last 24 hr 01/24/25 04:37 WBC 6.7 RBC 4.70 Hgb 13.6 Hct 38.2 MCV 81 MCH 28.9 MCHC 35.6 RDW Std Deviation 34.5 L Plt Count 223 Neut % (Auto) 79 Lymph % (Auto) 19 [place] % (Auto) 2 Eos % (Auto) 0 Baso % (Auto) 0 Neut # (Auto) 5.3 Lymph # (Auto) 1.3 [place] # (Auto) 0.1 Eos # (Auto) 0.0 Baso # (Auto) 0.0 Immature Gran # (Auto) 0.02 H Absolute Nucleated RBC 0.00 Immature Gran % 0 Nucleated RBC % 0 Sodium 139 Potassium 4.2 D Chloride 104 Carbon Dioxide 24.6 Anion Gap 10 BUN < 5 L Creatinine 0.8 Estim Creat Clear Calc 126.2 eGFR > 60 BUN/Creatinine Ratio 6 L Glucose 131 H D Calculated Osmolality 276 Calcium 9.2 Corrected Calcium 9.2 Phosphorus 4.1 Magnesium 2.0 Total Bilirubin 0.8 AST 31 ALT 29 Alkaline Phosphatase 59 Total Protein 6.9 Albumin 4.4 D Globulin 2.5 Albumin/Globulin Ratio 1.8 Quality Measures Quality Measures none Assessment & Plan Assessment Current Active Medications: Generic Name Dose Route Start Last Admin Trade Name Freq PRN Reason Stop Dose Admin Acetaminophen 650 mg 01/20/25 21:20 Acetaminophen 325 Mg Tablet PO 02/19/25 21:19 Q6H PRN Mild Pain (1-3) & Fever >101.5 Hydrocodone Bitart/Acetaminophen 1 tab 01/20/25 23:36 01/24/25 09:33 Hydrocodone/Apap 5/325 Tablet PO 01/25/25 23:35 1 tab Q6HR PRN Administration PAIN SCALE 4-6 (Moderate Al Hydrox/Mg Hydrox/Simethicone 30 ml 01/20/25 21:20 Mg Hyd/Al Hyd/Tricia (Maalox Reg) Susp 30 Ml Udc PO 02/19/25 21:19 Q6H PRN Indigestion Docusate Sodium 100 mg 01/23/25 21:00 01/24/25 08:31 Docusate Sod 100 Mg Capsule PO 02/22/25 20:59 100 mg BID JC Administration Protocol Duloxetine HCl 30 mg 01/22/25 18:00 01/24/25 08:31 Duloxetine Hcl 30 Mg Capsule PO 02/21/25 17:59 30 mg QDAY JC Administration Hydromorphone HCl 0.5 mg 01/22/25 20:40 01/24/25 11:39 Hydromorphone Inj 2 Mg/Ml Vial IVP 01/27/25 20:39 0.5 mg Q4HR PRN Administration severe pain 7-10 Lactated Ringer's 1,000 mls @ 75 mls/hr 01/20/25 21:30 01/24/25 06:23 Lactated Ringers IV 02/19/25 21:29 75 mls/hr .[id number] JC Administration Metoclopramide HCl 10 mg 01/22/25 09:46 01/23/25 09:10 Metoclopramide Inj 5 Mg/Ml Vial 2 Ml IVP 02/21/25 09:45 10 mg Q6HR PRN Administration NAUSEA OR VOMITING Protocol Pantoprazole Sodium 40 mg 01/20/25 21:30 01/24/25 08:30 Pantoprazole Inj 40 Mg Vial IVP 02/19/25 21:29 40 mg BID JC Administration Sucralfate 1 gm 01/22/25 14:00 01/24/25 06:22 Sucralfate Susp 1 Gm/10 Ml Udc PO 02/21/25 13:59 1 gm TID JC Administration Plan Melba Gloria is a 19-year-old female with past medical history of gastritis who presented to [facility] on 01/20/2025 with a chief complaint of nausea and vomiting. She was admitted for further workup for intractable abdominal pain nausea and vomiting and GI bleed. #Intractable abdominal pain #Intractable nausea and vomiting #GI bleed upper versus lower DDx: Peptic ulcer disease, gastritis, cyclical vomiting syndrome/cannabinoid hyperemesis syndrome, inflammatory bowel disease, biliary dyskinesia Presents with multiple episodes of nausea vomiting and abdominal pain for the last 10 days, multiple visits to ER, non-resolved with sucralfate and omeprazole. Reports bright red blood in stool 3 times about 5 days ago. On presentation hemoglobin within normal limits, electrolytes within normal limits, no JESSEE noted. CT abdomen pelvis from 01/14/2025 shows right adnexal cyst, otherwise benign. Urine tox screen positive for marijuana, reports last use about 10 days ago. Additionally, states she had a shoulder injury for which she used to take daily ibuprofen and had associated dyspepsia that did not resolve. ESR and CRP negative. EGD 01/21: Esophagitis in lower third of esophagus status post biopsies, diffuse moderate inflammation in the entire stomach s/p biopsy ? GI consulted, appreciate recommendations ? Protonix 40 IV twice daily ? Sucralfate 1 g 3 times daily ? Pain management with Dilaudid instead of morphine and [place] ? Simethicone 80 mg x1 #Hyperbilirubinemia #Gallbladder sludge Patient's bilirubin 1.3 on presentation, gallbladder ultrasound in ED on 01/19/2025 shows gallbladder sludge, negative for cholelithiasis. Direct and total bilirubin resolved. HIDA 01/22: Ejection fraction 18% Status-post successful laparoscopic cholecystectomy with signs of chronic cholecystitis ? General surgery consulted, appreciate recommendations ? Diet advanced to low fat #Right ovarian simple cyst Does report menorrhagia, pelvis ultrasound shows right ovarian simple cyst 2.3 x 1.[address] abdomen pelvis from 01/14/2025 shows right adnexal cyst. ? Continue outpatient follow-up with [facility] #THC dependence Patient advised to refrain from cannabis use. Hospital management: Disposition: status-post laparoscopic cholecystectomy requiring IV pain medications Fluids: none Diet: low fat Lines: PIV DVT prophylaxis: SCDs GI prophylaxis: protonix IV BID and sucralfate CODE STATUS: full code ----- Plan discussed with attending physician Dr. Dann Hirsch MD PGY-1 Internal Medicine Attending Provider Attestation/Addendum I have discussed and was present for the essential components of the history, physical examination, diagnosis, and treatment plan with the resident. I agree with the patient's care as documented by the resident and amended herein by me. Justin Quilgey DO. Patient seen and evaluated this AM. No acute events overnight, vital signs stable, patient afebrile this morning. No significant lab findings. Her abdominal incision sites are clean and dry, abdomen is soft, there is no distention, no signs of infection. Patient stated she did have improved pain this morning after Dilaudid. She also was up walking around, states the pain is better when she ambulates. Will continue to monitor another day and titrate down opioids. Will continue to monitor closely while she is here. Although this document has been carefully reviewed, there may still be some phonetic and other typographical errors. These errors are purely grammatical due to imperfections in the software program and should not be construed in any way to compromise the substance of the patient's medical care during this visit.
--- NOTE | 2025-01-24 15:31 | PC.SS ---
Rounding notes: Pt remains in a lot of pain due to her gallbladder removal yesterday. Pt is on IV pain meds today. It is anticipated that pt will go to oral pain meds tomorrow and if she does, pt will be ready for d/c tomorrow.
--- NOTE | 2025-01-24 15:42 | PC.NURSE ---
tele called to notify RN that pts HR was sustaining 43-[address] was notified, pt is asymptomatic and VS were taken, see flowsheet.
[2025-01-24] MEDS: METOCLOPRAMIDE INJ 5 MG/ML VIAL 2 ML 10 MG IVP (17:36)
--- NOTE | 2025-01-24 22:36 | ESPR_ITS ---
Documentation for date of: 01/24/25 Subjective Subjective Interval history: Patient in pain Will keep the patient other day Advance diet Exam Vital Signs Temp Pulse Resp BP Pulse Ox O2 Del Method O2 Flow Rate 97.3 F 58 L 16 125/88 H 98 Room Air 2 01/24/25 20:00 01/24/25 20:00 01/24/25 20:00 01/24/25 20:00 01/24/25 20:00 01/24/25 20:00 01/23/25 16:18 Objective Labs 01/24/25 04:37 01/24/25 04:37 Labs: Laboratory Results - last 24 hr 01/24/25 04:37 WBC 6.7 RBC 4.70 Hgb 13.6 Hct 38.2 MCV 81 MCH 28.9 MCHC 35.6 RDW Std Deviation 34.5 L Plt Count 223 Neut % (Auto) 79 Lymph % (Auto) 19 [place] % (Auto) 2 Eos % (Auto) 0 Baso % (Auto) 0 Neut # (Auto) 5.3 Lymph # (Auto) 1.3 [place] # (Auto) 0.1 Eos # (Auto) 0.0 Baso # (Auto) 0.0 Immature Gran # (Auto) 0.02 H Absolute Nucleated RBC 0.00 Immature Gran % 0 Nucleated RBC % 0 Sodium 139 Potassium 4.2 D Chloride 104 Carbon Dioxide 24.6 Anion Gap 10 BUN < 5 L Creatinine 0.8 Estim Creat Clear Calc 126.2 eGFR > 60 BUN/Creatinine Ratio 6 L Glucose 131 H D Calculated Osmolality 276 Calcium 9.2 Corrected Calcium 9.2 Phosphorus 4.1 Magnesium 2.0 Total Bilirubin 0.8 AST 31 ALT 29 Alkaline Phosphatase 59 Total Protein 6.9 Albumin 4.4 D Globulin 2.5 Albumin/Globulin Ratio 1.8 Impressions Impression: Status post laparoscopic cholecystectomy Quite a bit of postoperative pain Keep the patient another day in hospital for pain control Assessment & Plan A&P Narrative # Severe abdominal pain midepigastric right upper quadrant not responsive treatment with multiple visits to the ER # Nausea vomiting Plan Advised admission to the hospital CCK HIDA scan with ejection fraction of the gallbladder N.p.o. Consent obtained for fiberoptic esophagogastroduodenoscopy with possible biopsy possible therapeutic intervention under intravenous moderate sedation Thank you very much for the opportunity to participate in the care of this patient Time Spent With Patient Time: Total time spent is greater than 50% in coordination of care (as documented) at patient's floor/unit and/or counseling patient:
[2025-01-25] VITALS: BP 123/67; PULSE 46; PULSE 92; RESP 16; TEMP 36.5; O2SAT 96
[2025-01-25] MEDS: HYDROmorphone INJ 2 MG/ML VIAL 0.5 MG IVP (02:39)
--- NOTE | 2025-01-25 02:45 | PC.NURSE ---
accessed patient chart to cover for main RN
[2025-01-25 04:00] VITALS: BP 137/75; PULSE 43; PULSE 74; RESP 23; TEMP 36.7; O2SAT 94
[2025-01-25 06:21] LABS: Basophils % (Auto) 0 % (0-2.5); Eosinophils % (Auto) 0 % (0-10); Hematocrit 34.9 % (36.0-46.0); Hemoglobin 12.4 g/dL (12.0-16.0); Immature Granulocytes % (Auto) 0 % (0-0); Immature Granulocytes Auto 0.03 Thou/mm3 (0.00-0.00); Lymphocytes # (Auto) 2.5 Thou/mm3 (1.0-4.8); Lymphocytes % (Auto) 27 % (10-50); Mean Corpuscular HGB Conc 35.5 g/dl (31.0-37.0); Mean Corpuscular Hemoglobin 29.2 pg (25.0-35.0); Mean Corpuscular Volume 82 fL (80-100); Monocytes # (Auto) 0.6 Thou/mm3 (0.0-0.8); Monocytes % (Auto) 6 % (0-12); Neutrophils # (Auto) 6.2 Thou/mm3 (1.8-7.7); Neutrophils % (Auto) 66 % (37-80); Nucleated Red Blood Cell % 0 /100 WBC (0); Platelet Count 202 Thou/mm3 (140-440); RDW Standard Deviation 36.3 fL (36.4-46.3); Red Blood Count 4.24 Miln/mm3 (4.00-5.20); White Blood Count 9.4 Thou/mm3 (4.5-11.0)
[2025-01-25] MEDS: SIMETHICONE 80 MG CHEW PO (06:26)
[2025-01-25] MEDS: SUCRALFATE SUSP 1 GM/10 ML UDC PO ×2 (06:26→13:22)
[2025-01-25 06:46] LABS: Alanine Aminotransferase 27 U/L (10-49); Albumin, Serum 3.9 gm/dL (3.5-5.0); Albumin/Globulin Ratio 1.8 (1.2-2.2); Alkaline Phosphatase 51 U/L (46-116); Anion Gap 8 (7-16); Aspartate Amino Transferase 21 U/L (0-34); BUN/Creatinine Ratio 7 Ratio (12-20); Bilirubin,Total 0.6 mg/dL (0.3-1.2); Blood Urea Nitrogen < 5 mg/dL (9-23); Calcium 8.6 mg/dL (8.3-10.6); Calcium (Corrected) 8.7 mg/dL (8.5-10.1); Carbon Dioxide 26.2 mMol/L (20.0-31.0); Chloride 107 mMol/L (98-107); Creatinine (Component) 0.7 mg/dL (0.6-1.3); Estimated Creatinine Clearance 144.2 mL/min (>60); Globulin 2.2 gm/dL (2.3-3.5); Glucose 110 mg/dL (74-106); Magnesium 1.9 mg/dL (1.6-2.6); Osmolality,Calculated 279 (275-295); Phosphorous 3.3 mg/dL (2.4-5.1); Potassium 3.5 mMol/L (3.4-5.1); Sodium 141 mMol/L (136-145); Total Protein 6.1 gm/dL (5.7-8.2); eGFR > 60 See Note
[2025-01-25 07:40] VITALS: PULSE 66
[2025-01-25 08:00] VITALS: BP 127/82; PULSE 60; RESP 16; TEMP 36.4; O2SAT 96
[2025-01-25] MEDS: PANTOPRAZOLE INJ 40 MG VIAL IVP (08:03)
[2025-01-25] MEDS: DOCUSATE SOD 100 MG CAPSULE PO (08:03)
--- NOTE | 2025-01-25 09:53 | PC.SS ---
SS follow up note; Weaning down on pain meds. Patient will discharge back home when medically cleared.
[2025-01-25] MEDS: HYDROcodone/APAP 5/325 TABLET 1 TAB PO (10:31)
[2025-01-25 11:42] VITALS: BP 138/84; PULSE 77; RESP 20; TEMP 36.7; O2SAT 96
--- NOTE | 2025-01-25 11:58 | ESDS_ITS ---
Planned Discharge Date 01/25/25 DS: Providers Provider Date of admission: 01/20/25 21:20 Primary care physician: Physician No Primary/Family Admitting Provider: Conrado Samaniego MD Attending Provider on Admission: Gabe Quigley DO Consults: 01/20/25 21:26 Consult to Gastroenterology Routine Comment: Abdominal Pain, BRB in Stool Consulting Provider: Maxine Oswald 01/21/25 08:00 Referral Registered Dietitian Routine Comment: 01/22/25 21:17 Consult to General Surgery Routine Comment: Consulting Provider: Cali Max Attending Provider on DC: Joey Hirsch MD Discharging Provider: Joey Hirsch MD DS: Diagnosis Problem List Completed Was Problem List Reviewed/Reconciled?: Yes Hospital Course Hospital Course Hospital course: Melba Gloria is a 19-year-old female with a past medical history of gastritis who presented on 01/20 for nausea and vomiting for 7 to 9 days prior to admission. Nonbloody, decreased p.o. intake associated 15 pound weight loss. Was seen multiple times in ED at [facility] and [facility]. States that she has gastritis from years ago as she used to take OTC pain medications daily for shoulder injury in the past. Vital signs stable, total bilirubin mildly elevated at 1.3,, gallbladder ultrasound showed sludge but negative for cholelithiasis and cholecystitis. Otherwise afebrile and no leuk ocytosis. GI consulted and patient underwent EGD on 01/21 that showed esophagitis gastritis, which biopsies were obtained. HIDA scan was then ordered given relatively benign findings compared to patient's symptoms and showed reduced EF of 15%. General surgery was then consulted and patient underwent laparoscopic cholecystectomy on 01/23 with evidence of chronic cholecystitis. Following day patient was in significant pain, requiring IV pain medications but otherwise is afebrile, no leukocytosis, LFTs and T. bili within normal limits, and incision sites C/D/I. She was able to have a bowel movement the following morning and ambulating around the unit. However, given pain she was monitored for an additional day and following day pain improved from 10/10 to 6/10 in intensity when not on pain medications and manageable with medications. Patient amenable to be discharged home on p.o. pain meds as well as sucralfate and pantoprazole and follow-up with surgery in 1 week. Diagnoses during admission: #Intractable abdominal pain #Intractable nausea and vomiting #Cholecystitis #Hyperbilirubinemia #Gallbladder sludge #Right ovarian simple cyst #THC dependence Discharge instructions: ? Continue sucralfate 1 g 3 times daily ? Take norco as needed for pain ? Follow-up with general surgery within 1 week of discharge ? Continue taking all other home medications as prescribed ? Follow-up with primary care provider within 1-2 weeks of discharge ? If you do not have a primary careprovider, you can follow-up at the [facility] (you can call [phone] to make an appointment) ? If you wish to follow-up with Dr. Hirsch, schedule appointment on Wednesday ? Return to ED if symptoms worsen or recur ----- Plan discussed with attending physician Dr. Dann Hirsch MD PGY-1 Internal Medicine Time Spent with Patient Time attestation: Total time spent providing and/or coordinating discharge services: Time spent: Greater than 30 minutes Exam Vital Signs Temp Pulse Resp BP Pulse Ox O2 Del Method O2 Flow Rate 98.1 F 77 20 138/84 H 96 Room Air 2 01/25/25 11:42 01/25/25 11:42 01/25/25 11:42 01/25/25 11:42 01/25/25 11:42 01/25/25 11:42 01/23/25 16:18 Narrative Exam General: AOx3, acute distress from abdominal pain, able to speak full sentences HEENT: NC/AT, mucous membranes moist, bilateral sclera anicteric Cardiovascular: regular rate and rhythm, S1/S2 present, no murmurs appreciated Pulmonary: clear to auscultation bilaterally, no rales/rhonchi/wheezes Abdominal: epigastric tenderness, incision sits C//D/I, soft, non-tender, non- distended, no rebound/guarding, normal bowel sounds present Musculoskeletal: normal ROM, no peripheral edema Skin: warm and dry, intact, no rashes Neuro: CN II-XII intact, no focal deficits Discharge Plan Plan Patient Disposition: HOME (Self Care) Care Plan Goals: ? Continue sucralfate 1 g 3 times daily ? Take norco as needed for pain ? Follow-up with general surgery within 1 week of discharge ? Continue taking all other home medications as prescribed ? Follow-up with primary care provider within 1-2 weeks of discharge ? If you do not have a primary careprovider, you can follow-up at the [facility] (you can call [phone] to make an appointment) ? If you wish to follow-up with Dr. Hirsch, schedule appointment on Wednesday afternoons ? Return to ED if symptoms worsen or recur Prescriptions/Referrals Prescriptions/Med Rec: New sucralfate 100 mg/mL suspension 10 ml PO TID Qty: 1000 0RF pantoprazole 40 mg tablet,delayed release (DR/EC) 40 mg PO QDAY Qty: 30 0RF hydrocodone-acetaminophen 5-325 mg tablet 1 tab PO TID MDD 3 tablets Qty: 15 0RF Continued ondansetron 4 mg tablet,disintegrating 4 mg PO Q8H Qty: 10 0RF Held omeprazole 20 mg capsule,delayed release(DR/EC) 20 mg PO BID Hold Instructions: Resume on 02/08/25. Patient Comments: TAKE ONE CAPSULE BY MOUTH TWICE DAILY BEFORE MEALS GASTRIC ACIDITY Discontinued sucralfate 1 gram tablet 1 g PO BID Patient Comments: TAKE ONE TABLET BY MOUTH TWICE DAILY BEFORE MEALS Referrals: Cali Max MD [Physician] - Maxine Oswald MD [Physician] - No Primary/Family,Physician [Primary Care Provider] - Patient/Caregiver Discharge Instructions Education Materials: Abdominal Pain, Preventing Surgical Site Infections Print Language: Belarusian Stand Alone Forms: [facility] Award Info., Patient Portal Info Letter Discharge Order Discharge Orders: Discharge (Routine); Ordered 01/25/25 Ordered By: Joey Hirsch Quality Discharge Quality Measures VTE prophylaxis Attestestation Attestation I have discussed and was present for the essential components of the discharge history, physical examination, diagnosis, and discharge treatment plan with the resident. I agree with the patient's discharge care as documented by the resident and amended herein by me. Justin Quigley DO. The patient understood all discharge instructions, all questions were answered satisfactorily. The patient was instructed to return to the Emergency Department is symptoms worsened or persisted. Patient was significantly improved today as far as her pain is concerned, we will send with a short course of [place] for pain control. Patient was stable, afebrile, tolerating p.o. intake and afebrile at time of discharge home. Although this document has been carefully reviewed, there may still be some phonetic and other typographical errors. These errors are purely grammatical due to imperfections in the software program and should not be construed in any way to compromise the substance of the patient's medical care during this visit.
[2025-01-25 12:00] VITALS: PULSE 64
--- NOTE | 2025-01-25 21:19 | PD.IMPROG ---
Documentation for date of: 01/25/25 Subjective Subjective Interval history: Late entry for the note Case discussed with internal medicine team patient can be followed by the PCP No need for GI follow-up Exam Vital Signs Temp Pulse Resp BP Pulse Ox O2 Del Method O2 Flow Rate 98.1 F 64 20 138/84 H 96 Room Air 2 01/25/25 11:42 01/25/25 12:00 01/25/25 11:42 01/25/25 11:42 01/25/25 11:42 01/25/25 11:42 01/23/25 16:18 Objective Labs 01/25/25 05:06 01/25/25 05:06 Labs: Laboratory Results - last 24 hr 01/25/25 05:06 WBC 9.4 D RBC 4.24 Hgb 12.4 Hct 34.9 L MCV 82 MCH 29.2 MCHC 35.5 RDW Std Deviation 36.3 L Plt Count 202 Neut % (Auto) 66 Lymph % (Auto) 27 [place] % (Auto) 6 Eos % (Auto) 0 Baso % (Auto) 0 Neut # (Auto) 6.2 Lymph # (Auto) 2.5 [place] # (Auto) 0.6 Eos # (Auto) 0.0 Baso # (Auto) 0.0 Immature Gran # (Auto) 0.03 H Absolute Nucleated RBC 0.00 Immature Gran % 0 Nucleated RBC % 0 Sodium 141 Potassium 3.5 D Chloride 107 Carbon Dioxide 26.2 Anion Gap 8 BUN < 5 L Creatinine 0.7 Estim Creat Clear Calc 144.2 eGFR > 60 BUN/Creatinine Ratio 7 L Glucose 110 H Calculated Osmolality 279 Calcium 8.6 Corrected Calcium 8.7 Phosphorus 3.3 Magnesium 1.9 Total Bilirubin 0.6 AST 21 ALT 27 Alkaline Phosphatase 51 Total Protein 6.1 Albumin 3.9 D Globulin 2.2 L Albumin/Globulin Ratio 1.8 Impressions Impression: Biliary dyskinesia status post laparoscopic cholecystectomy Gastritis Esophagitis Plan As under HPI Assessment & Plan A&P Narrative # Severe abdominal pain midepigastric right upper quadrant not responsive treatment with multiple visits to the ER # Nausea vomiting Plan Advised admission to the hospital CCK HIDA scan with ejection fraction of the gallbladder N.p.o. Consent obtained for fiberoptic esophagogastroduodenoscopy with possible biopsy possible therapeutic intervention under intravenous moderate sedation Thank you very much for the opportunity to participate in the care of this patient Time Spent With Patient Time: Total time spent is greater than 50% in coordination of care (as documented) at patient's floor/unit and/or counseling patient:
[2025-01-26 06:39] LABS: Giardia Result NOT DETECTED
[2025-01-30 06:38] LABS: ANCA Screen NEGATIVE (NEGATIVE); Myeloperoxidase Ab <1.0 AI (<1.0); Proteinase-3 Ab <1.0 AI (<1.0)
== END 2025-01-25 13:41 | disposition home or self-care (01) | DRG 356 ==
LOC: SERX 22:02 → SERHOLD 22:14 → S3NX 23:00
PROVIDERS: Nurse Practitioner Family; Specialist; Surgery; Admitting Provider Student in an Organized Health Care Education/Training Program; Emergency Provider Emergency Medicine; Visit Provider Student in an Organized Health Care Education/Training Program
PROC: (CPT 43239; principal; 2025-01-21 13:45)
PROC: 0FT44ZZ Resection of Gallbladder, Percutaneous Endoscopic Approach (ICD-10-PCS; CPT 47562; principal; 2025-01-23 16:00)
DX: K20.91 Esophagitis, unspecified with bleeding (principal); K29.71 Gastritis, unspecified, with bleeding; R17 Unspecified jaundice; E87.0 Hyperosmolality and hypernatremia; K21.01 Gastro-esophageal reflux disease with esophagitis, with bleeding; K81.1 Chronic cholecystitis; K82.8 Other specified diseases of gallbladder; N92.0 Excessive and frequent menstruation with regular cycle; G89.29 Other chronic pain; N83.291 Other ovarian cyst, right side; F12.20 Cannabis dependence, uncomplicated; K21.9 Gastro-esophageal reflux disease without esophagitis; Z79.899 Other long term (current) drug therapy
CPT/HCPCS: 36415; 78227; 80053; 80061; 80307; 81001; 81025; 82248; 83690; 83735; 83993; 84100; 84443; 85025; 85610; 85652; 86021; 86036; 86140; 87015; 87045; 87046; 87077; 87205; 87329; 87493; 87899; 93225; 96361; 96374; 96375; 99285; A4217; A4649; A9537; J0131; J0694; J1100; J1171; J1200; J1885; J2250; J2270; J2405; J2470; J2550; J2704; J2765; J2805; J3010; J3490; J7030; J7120; Q0162; A9270

== ENCOUNTER 2025-01-26 14:40 | Emergency (ER) | payer BC, SELFPAY ==
[2025-01-26 15:16] VITALS: BP 131/91; PULSE 78; RESP 20; TEMP 36.8; O2SAT 95
--- NOTE | 2025-01-26 15:18 | PD.EDRME ---
Rapid Medical Screening Exam E Arrival date/time: 01/26/25 14:40 This is a case of 19 year old female s/p [place] last wednesday d/c with no complication came in with generalized abdominal pain radiating to the back after her dog jumped her in the abdomen with N/v and diarrhea Chief Complaint: General Adult/Misc Complain Vital signs: Vital Signs Temperature 98.2 F 01/26/25 15:16 Pulse Rate 78 01/26/25 15:16 Respiratory Rate 20 01/26/25 15:16 Blood Pressure 131/91 H 01/26/25 15:16 Pulse Oximetry (%) 95 01/26/25 15:16 Oxygen Delivery Method Room Air 01/26/25 15:16
--- NOTE | 2025-01-26 15:23 | XR_ITS ---
Examination: CT abdomen and pelvis without contrast. Coronal 3-D reconstructions. Sagittal 2-D reconstructions. Date and time of exam:2024 1727 hours Comparison January 14, 2025 INDICATIONS: Upper abdominal pain radiating to the back beginning 3 days ago CTDI: vol (mGy): 8.33 DLP: (mGycm): 464 Technique: Axial images of the abdomen have been obtained, 3 mm slice thickness Intravenous contrast material has not been administered. Low dose protocols were performed. One or more of the following dose reduction techniques were used; automated exposure control, adjustment of the mA and/or KV according to patient size, use of iterative reconstruction technique. Findings: Pneumoperitoneum No focal liver or splenic lesions Absent gallbladder No extra hepatic biliary tract dilatation No pancreatic mass No renal or ureteral calculi, no hydronephrosis Aorta normal size Thickening of the umbilical tract The appendix does not appear inflamed There is mild inflammatory change about the right colon No bowel obstruction There is moderate free fluid in the pelvis No uterine mass Urinary bladder is intact. IMPRESSION: Pneumoperitoneum No renal or renal calculi Normal appendix No abscess in the gallbladder fossa
--- NOTE | 2025-01-26 15:26 | PC.NURSE ---
PAtient c/o N/V and pain 06/29, provider Elliot made aware. new order for [place] 5/325mg POx1 now and Zofran 4mg ODT x1 now. Pharmacy aware.
[2025-01-26] MEDS: ONDANSETRON ODT 4 MG TABRAP PO ×2 (15:29→22:28)
[2025-01-26] MEDS: HYDROcodone/APAP 5/325 TABLET 1 TAB PO (15:30)
[2025-01-26 16:06] LABS: Eosinophils % (Auto) 0 % (0-10); Nucleated Red Blood Cell % 0 /100 WBC (0); RDW Standard Deviation 36.6 fL (36.4-46.3); Red Blood Count 4.82 Miln/mm3 (4.00-5.20)
[2025-01-26 16:12] LABS: Alanine Aminotransferase 25 U/L (10-49); Albumin, Serum 4.6 gm/dL (3.5-5.0); Albumin/Globulin Ratio 1.8 (1.2-2.2); Alkaline Phosphatase 58 U/L (46-116); Anion Gap 10 (7-16); Aspartate Amino Transferase 16 U/L (0-34); BUN/Creatinine Ratio 6 Ratio (12-20); Bilirubin,Total 0.7 mg/dL (0.3-1.2); Blood Urea Nitrogen 5 mg/dL (9-23); Calcium 9.5 mg/dL (8.3-10.6); Calcium (Corrected) 9.5 mg/dL (8.5-10.1); Carbon Dioxide 25.7 mMol/L (20.0-31.0); Chloride 105 mMol/L (98-107); Creatinine (Component) 0.8 mg/dL (0.6-1.3); Globulin 2.6 gm/dL (2.3-3.5); Glucose 97 mg/dL (74-106); Lipase 33 U/L (12-53); Osmolality,Calculated 278 (275-295); Potassium 3.6 mMol/L (3.4-5.1); Sodium 141 mMol/L (136-145); Total Protein 7.2 gm/dL (5.7-8.2); eGFR > 60 See Note
[2025-01-26 16:15] LABS: Basophils % (Auto) 0 % (0-2.5); Hematocrit 39.9 % (36.0-46.0); Immature Granulocytes % (Auto) 0 % (0-0); Immature Granulocytes Auto 0.04 Thou/mm3 (0.00-0.00); Lymphocytes % (Auto) 31 % (10-50); Mean Corpuscular HGB Conc 35.1 g/dl (31.0-37.0); Mean Corpuscular Volume 83 fL (80-100); Monocytes # (Auto) 0.7 Thou/mm3 (0.0-0.8); Monocytes % (Auto) 7 % (0-12); Neutrophils # (Auto) 5.9 Thou/mm3 (1.8-7.7); Neutrophils % (Auto) 61 % (37-80); Platelet Count 263 Thou/mm3 (140-440); White Blood Count 9.6 Thou/mm3 (4.5-11.0)
[2025-01-26 17:13] LABS: Collection Type, Urine Clean Catch
[2025-01-26 17:21] LABS: HCG Qualitative,Urine Negative
[2025-01-26 17:33] LABS: Bacteria,Urine Rare; Bilirubin,Urine Negative (Negative); Blood,Urine Negative (Negative); Clarity,Urine Clear (Clear/Hazy); Color,Urine Lt-Yellow (Lt Yel-Yel); Glucose, Urine Negative (Negative); Ketones,Urine 2+ (Negative); Leukocyte Esterase,Urine Negative (Negative); Nitrite,Urine Negative (Negative); PH,Urine 7.5 (5.0-7.0); Protein,Urine Negative (Neg - Trace); RBC,Urine 1 /hpf (0-3); Specific Gravity,Urine 1.019 (1.001-1.035); Squamous Epithelial Cell,Urine 1 /hpf (0-5); WBC,Urine 1 /hpf (0-5)
--- NOTE | 2025-01-26 19:22 | PC.NURSE ---
ICE PACK GIVEN PER REQUEST OF PT
--- NOTE | 2025-01-26 19:25 | PC.NURSE ---
PAtient c/o pain of pain 04/29 and continued N/V. Provider Elliot made aware. New order for Toradol 30mg IM x1 now and Phenergan 12.5mg IM x1 now. Pharmacy aware.
[2025-01-26] MEDS: KETOROLAC INJ 60 MG/2 ML VIAL 30 MG IM (19:59)
[2025-01-26] MEDS: PROMETHAZINE INJ 25 MG/ML VIAL 12.5 MG IM (19:59)
[2025-01-26 20:32] VITALS: BP 128/80; PULSE 54; RESP 16; TEMP 36.8; O2SAT 99
[2025-01-26 21:50] VITALS: BP 142/92; PULSE 70; RESP 20; TEMP 36.9; O2SAT 98; BMI 25.8
--- NOTE | 2025-01-26 21:56 | EDNOTE_ITS ---
ED General RME/HPI General Chief complaint: General Adult/Misc Complain Stated complaint: S/P gall bladder removal pain Time Seen by Provider: 01/26/25 21:59 Arrival date/time: 01/26/25 14:40 RME / HPI RME / HPI narrative: 01/26/25 14:40 This is a case of 19 year old female s/p [place] last wednesday d/c with no complication came in with generalized abdominal pain radiating to the back after her dog jumped her in the abdomen with N/v and diarrhea --------- Dr. Watters?s Main ED Evaluation: 19yo female who had a cholecystectomy done on Wednesday presents to the ED for a chief complaint of significant diffuse a bdominal pain x yesterday. No radiation or migration. Patient states after she was discharged home yesterday, her family dog jumped on her stomach and has since had significant abdominal pain. She reports having N/V, reporting she threw up peaches . Patient was prescribed [place] for her pain, but endorses it has not improved her symptoms, so she came in for evaluation. Patient denies any diarrhea, fever, chills or any other associated symptoms. NKA. Related Data Home Medications ?Medication ?Instructions ?Recorded ?Confirmed omeprazole 20 mg capsule,delayed 20 mg PO BID 01/20/25 01/20/25 release Held on 01/25/25. Instructions: Resume on 02/08/25. Previous Rx's ?Medication ?Instructions ?Recorded ondansetron 4 mg disintegrating 4 mg PO Q8H #10 tabs 0 01/14/25 tablet hydrocodone 5 mg-acetaminophen 325 1 tab PO TID #15 ta bs 01/25/25 mg tablet pantoprazole 40 mg tablet,delayed 40 mg PO QDAY #30 ta bs 01/25/25 release sucralfate 100 mg/mL oral 10 ml PO TID #1,000 mL 01/25 suspension Allergies Allergy/AdvReac Type Severity Reaction Status Date / Time No Known Allergies Allergy Verified 01/26/25 14:43 Review of Systems Review of Systems Systems Reviewed: All systems reviewed, normal except as documented ED Exam Narrative Physical exam: GENERAL APPEARANCE: AxOx4, generally well-appearing, panicking and crying, appears anxious, no acute distress. HEENT: NC, AT. MMM. EOMI, clear conjunctiva, oropharynx clear. NECK: Supple without lymphadenopathy. No stiffness or restricted ROM. HEART: Normal rate and regular rhythm, normal S1/S1, no m/r/g LUNGS: CTAB, moving air well. No crackles or wheezes are heard. ABDOMEN: Soft, nontender, nondistended with good bowel sounds heard. BACK: No midline C/T/L spine pain or deformity, No CVAT, no obvious deformity. EXTREMITIES: Without cyanosis, clubbing or edema. MUSCULOSKELETAL: FROM of all major joints, no chest tenderness NEUROLOGICAL: Grossly nonfocal. Alert and oriented, moving all 4 extremities. CN not formally tested but appear grossly intact. Observed to ambulate with normal gait. Skin: Warm and dry without any rash. Laparascopic scars at the abdomen that are C/D/I with dermabond still in place. Course Course Course Narrative: Dilaudid, Zofran, and Valium ordered. Patient is stable to be discharged home after she receives the medications. Quality Measures none Orders Category Date Time Status CT abdomen pelvis wo con Stat Exams 01/26/25 15:23 Completed CBC Stat Lab 01/26/25 15:46 Completed Comprehensive Metabolic Panel Stat Lab 01/26/25 15:46 Completed HCG Qualitative,Urine Stat Lab 01/26/25 16:50 Completed Lipase Stat Lab 01/26/25 15:46 Completed Urinalysis Stat Lab 01/26/25 16:50 Completed Diazepam [Valium] Med 01/26/25 21:57 Discontinued 10 mg PO X1 ONE HYDROcodone*/APAP 5/325 [[place] 5/325] Med 01/26/25 15:25 Discontinued 1 tab PO X1 ONE HYDROmorphone INJ [Dilaudid Inj] Med 01/26/25 21:57 Discontinued 0.5 mg IM X1 ONE Ketorolac Inj [Toradol Inj] Med 01/26/25 19:23 Discontinued 30 mg IM X1 ONE Ondansetron Odt [Zofran Odt] Med 01/26/25 15:26 Discontinued 4 mg PO X1 ONE Ondansetron Odt [Zofran Odt] Med 01/26/25 21:57 Discontinued 4 mg PO X1 ONE Promethazine Inj [Phenergan Inj] Med 01/26/25 19:24 Discontinued 12.5 mg IM X1 ONE Vital Signs Vital signs: Vital Signs Temperature 98.2 F 01/26/25 15:16 Pulse Rate 78 01/26/25 15:16 Respiratory Rate 20 01/26/25 15:16 Blood Pressure 131/91 H 01/26/25 15:16 Pulse Oximetry (%) 95 01/26/25 15:16 Oxygen Delivery Method Room Air 01/26/25 15:16 Discharge Plan Plan Patient Disposition: HOME (Self Care) Prescriptions/Referrals Prescriptions/Med Rec: No Action ondansetron 4 mg tablet,disintegrating 4 mg PO Q8H Qty: 10 0RF omeprazole 20 mg capsule,delayed release(DR/EC) 20 mg PO BID Patient Comments: TAKE ONE CAPSULE BY MOUTH TWICE DAILY BEFORE MEALS GASTRIC ACIDITY sucralfate 100 mg/mL suspension 10 ml PO TID Qty: 1000 0RF pantoprazole 40 mg tablet,delayed release (DR/EC) 40 mg PO QDAY Qty: 30 0RF hydrocodone-acetaminophen 5-325 mg tablet 1 tab PO TID MDD 3 tablets Qty: 15 0RF Referrals: Cuca Ford PA-C [Primary Care Provider] - In 1 week Problem List Clinical Impression: Abdominal pain Patient/Caregiver Discharge Instructions Education Materials: ED Pain, Acute, Uncertain Cause Additional Instructions: Follow-up with your surgeon in 2-3 days for recheck. You can return to the emergency sooner if symptoms worsen or for any new or concerning issues. Print Language: Slovenian Stand Alone Forms: [facility] Award Info., Patient Portal Info Letter MDM Narrative MDM hospital course (for use when minimal MDM required): Scribe Attestation: 01/26/25 Lanette Ross am scribing for and in the presence of Dr. Watters. Clinical Information Provided by: patient Medical Records reviewed [facility] (Per chart review, patient was admitted here on 01/20/25 for intractable a bdominal pain nausea and vomiting and GI bleed.) Meds/Rx considered, not ordered None Labs/Rad/Tests considered, not ordered None Chronic Illness/Social Conditions which may negatively complicate care or outcome(s)-explain: None or not applicable Labs Labs: Interpreted by me Lab(s) Interpretation(s): CBC is normal, CMP is normal, UA is unremarkable, HCG is negative. Imaging Imaging interpretation: Interpreted by sc Imaging Interpretation(s): [facility] Report Signed Patient: YULI FIELDS Record#: [id number] Birthdate: 2005 Age/Sex: 19 / F Location: [facility] Attending Dr: Ordering Physician: Zoila Rodrigez Date of Service: 01/26/25 Procedure(s): CT abdomen pelvis wo con Accession Number(s): [id number] cc: Cuca Ford PA-C; Ramon Santana MD; Zoila Rodrigez~ Examination: CT abdomen and pelvis without contrast. Coronal 3-D reconstructions. Sagittal 2-D reconstructions. Date and time of exam:2024 1727 hours Comparison January 14, 2025 INDICATIONS: Upper abdominal pain radiating to the back beginning 3 days ago CTDI: vol (mGy): 8.33 DLP: (mGycm): 464 Technique: Axial images of the abdomen have been obtained, 3 mm slice thickness Intravenous contrast material has not been administered. Low dose protocols were performed. One or more of the following dose reduction techniques were used; automated exposure control, adjustment of the mA and/or KV according to patient size, use of iterative reconstruction technique. Findings: Pneumoperitoneum No focal liver or splenic lesions Absent gallbladder No extra hepatic biliary tract dilatation No pancreatic mass No renal or ureteral calculi, no hydronephrosis Aorta normal size Thickening of the umbilical tract The appendix does not appear inflamed There is mild inflammatory change about the right colon No bowel obstruction There is moderate free fluid in the pelvis No uterine mass Urinary bladder is intact. IMPRESSION: Pneumoperitoneum No renal or renal calculi Normal appendix No abscess in the gallbladder fossa Dictated By: Ramon Santana MD Signed By: <Electronically signed by Ramon Santana MD in [place]> 01/26/25 9577 Medication Administration(s) Medication Administration History Discontinued Medications Hydrocodone Bitart/Acetaminophen (Hydrocodone/Apap 5/325 Tablet) 1 tab PO X1 ONE Stop: 01/26/25 15:26 Last Admin: 01/26/25 15:30 Dose: 1 tab Documented By: Diazepam (Diazepam 5 Mg Tablet) 10 mg PO X1 ONE Stop: 01/26/25 21:58 Last Admin: 01/26/25 22:28 Dose: 10 mg Documented By: DT Hydromorphone HCl (Hydromorphone Inj 2 Mg/Ml Vial) 0.5 mg IM X1 ONE Stop: 01/26/25 21:58 Last Admin: 01/26/25 22:26 Dose: 0.5 mg Documented By: DEMOND Ketorolac Tromethamine (Ketorolac Inj 60 Mg/2 Ml Vial) 30 mg IM X1 ONE Stop: 01/26/25 19:24 Last Admin: 01/26/25 19:59 Dose: 30 mg Documented By: SHANNON Ondansetron HCl (Ondansetron Odt 4 Mg Tabrap) 4 mg PO X1 ONE; Protocol Stop: 01/26/25 15:27 Last Admin: 01/26/25 15:29 Dose: 4 mg Documented By: Ondansetron HCl (Ondansetron Odt 4 Mg Tabrap) 4 mg PO X1 ONE; Protocol Stop: 01/26/25 21:58 Last Admin: 01/26/25 22:28 Dose: 4 mg Documented By: DEMOND Promethazine HCl (Promethazine Inj 25 Mg/Ml Vial) 12.5 mg IM X1 ONE; Protocol Stop: 01/26/25 19:25 Last Admin: 01/26/25 19:59 Dose: 12.5 mg Documented By: SHANNON see above Diagnosis Differential Diagnosis ED Complaint MDM: abdominal wall strain, intraabdominal abscess, bowel perforation
[2025-01-26] MEDS: HYDROmorphone INJ 2 MG/ML VIAL 0.5 MG IM (22:26)
[2025-01-26] MEDS: DIAZEPAM 5 MG TABLET 10 MG PO (22:28)
[2025-01-26 23:26] VITALS: BP 121/68; PULSE 57; RESP 20; TEMP 37; O2SAT 98
== END 2025-01-26 23:28 | disposition home or self-care (01) ==
PROVIDERS: Nurse Practitioner Family; Emergency Provider Emergency Medicine; PCP Physician Assistant Medical
DX: R10.84 Generalized abdominal pain (principal); Z90.49 Acquired absence of other specified parts of digestive tract; R11.2 Nausea with vomiting, unspecified; R19.7 Diarrhea, unspecified
CPT/HCPCS: 36415; 74176; 80053; 81001; 81025; 83690; 85025; 96372; 99284; J1171; J1885; J2550; Q0162; A9270